=== PATIENT | female | born 1960 | race Caucasian/White ===

== ENCOUNTER → 2016-04-13 | Outpatient (CLI) | payer OTHER ==
[~2016-04-13] MED LIST: AMLO5TAB2 PO; AMLO5TAB22 PO; AMOX875 PO; AMOX875T PO; ATEN-102 PO; ATEN100T PO; COZA100T PO; FURO20 PO; HYCOS PO; LOSA25TA31 PO; METF500 PO; METF500T PO; RANI150 PO; ULTR50TA PO; ULTR50TA5 PO; URSO300 PO; URSO300C2 PO; VITA100018 PO; VITA100064 PO; ZANT150T2 PO
[2016-04-13 12:19] LABS: AUTOMATED NEUTROPHIL # 4.7 TH/MM3 (1.8-7.7); BASOPHIL % 0.5 % (0.0-2.0); EOSINOPHIL # 0.2 TH/MM3 (0-0.4); EOSINOPHIL % 2.2 % (0.0-4.0); HEMATOCRIT 39.1 % (35.0-46.0); HEMO FLAGS DIFF FINAL; LYMPH % 35.4 % (9.0-44.0); MEAN CELL VOLUME 91.3 FL (80.0-100.0); MONO % 7.6 % (0.0-8.0); NEUT % 54.3 % (16.0-70.0); PLATELET COUNT 127 TH/MM3 (150-450); RED BLOOD COUNT 4.28 MIL/MM3 (4.00-5.30); RED CELL DISTRIBUTION WIDTH 17.2 % (11.6-17.2); WHITE BLOOD COUNT 8.6 TH/MM3 (4.0-11.0)
[2016-04-13 12:31] LABS: ALKALINE PHOSPHATASE 127 U/L (45-117); ALT (GPT) 47 U/L (10-53); ANION GAP 9 MEQ/L (5-15); AST (GOT) 48 U/L (15-37); BICARBONATE 27.3 MEQ/L (21.0-32.0); BLOOD UREA NITROGEN 22 MG/DL (7-18); CHLORIDE 101 MEQ/L (98-107); GLOMERULAR FILTRATION RATE 47 ML/MIN (>89); GLUCOSE,FASTING 108 MG/DL (74-99); LDL CHOLESTEROL 140 MG/DL (0-99); SODIUM (NA) 137 MEQ/L (136-145); TOTAL BILIRUBIN ADULT 0.9 MG/DL (0.2-1.0)
[2016-04-13 17:33] LABS: HEMOGLOBIN A1a 0.9 %; HEMOGLOBIN A1b 1.9 %; HEMOGLOBIN Ao 83.8 %; HEMOGLOBIN P3 3.9 %
== END ==
LOC: PLAB 09:00
PROVIDERS: ATTEND Internal Medicine Gastroenterology
DX: L29.9 Pruritus, unspecified (principal); R19.5 Other fecal abnormalities; K74.3 Primary biliary cirrhosis
CPT/HCPCS: 80053; 80061; 83036; 84443; 85025

== ENCOUNTER 2016-04-20 21:33 | Emergency (ER) | payer OTHER ==
[~2016-04-20] VITALS: Ht 157.5 cm; Wt 121.6 kg
[~2016-04-20 21:33] MED LIST changes: -AMLO5TAB2 PO; -AMOX875T PO; -ATEN100T PO; -COZA100T PO; -HYCOS PO; -METF500T PO; -ULTR50TA5 PO; -URSO300C2 PO; -VITA100064 PO; -ZANT150T2 PO
[2016-04-20 21:57] VITALS: BP 139/76; PULSE 54; RESP 20; TEMP 98.7; O2SAT 98
[2016-04-20] MEDS ORDERED: ATEN100T PO (23:19)
[2016-04-20] MEDS ORDERED: VITA100064 PO (23:19)
[2016-04-20] MEDS ORDERED: URSO300C2 PO (23:19)
[2016-04-20] MEDS ORDERED: AMLO5TAB2 PO (23:19)
[2016-04-20] MEDS ORDERED: METF500T PO (23:19)
[2016-04-20] MEDS ORDERED: ULTR50TA5 PO (23:19)
[2016-04-20] MEDS ORDERED: COZA100T PO (23:19)
[2016-04-20] MEDS ORDERED: ZANT150T2 PO (23:19)
[2016-04-21] MEDS ORDERED: HYCOS PO (00:12)
[2016-04-21] MEDS ORDERED: AMOX875T PO (00:12)
--- NOTE | 2016-04-21 00:12 | PD ---
HPI Chief Complaint: Cold / Flu Symptoms Time Seen by Provider: 23:52 Travel History International Travel<30 days: No Contact w/Intl Traveler<30days: No Traveled to known affect area: No History of Present Illness HPI 55-year-old female complains of right otalgia, sore throat worse with swallowing and an occasional dry cough with some pain in the region of the right upper chest and right upper back. Symptoms started gradually a few days ago. Intermittent subjective fevers reported. She reports a history of acute otitis media of the right ear several months ago which responded well to amoxicillin. The patient smokes. She's had no exertional chest pain. PFSH Past Medical History Hx Anticoagulant Therapy: Yes Cancer: No Cardiovascular Problems: Yes (HTN CHOL) Diabetes: Yes Patient Takes Glucophage: Yes Endocrine: No Genitourinary: No Hepatitis: Yes (Biliary cirrhosis) Hiatal Hernia: No Hypertension: Yes Immune Disorder: No Musculoskeletal: Yes (Arthritis ) Neurologic: No Psychiatric: No Reproductive: No Respiratory: No Thyroid Disease: No Tetanus Vaccination: < 5 Years Influenza Vaccination: Yes ?: Not LMP: NONE Menopausal: Yes Past Surgical History Abdominal Surgery: Yes (Liver bx's) AICD: No Section: Yes (X's 2) Cholecystectomy: Yes Gynecologic Surgery: Yes (C-SECT. X2) Joint Replacement: No Pacemaker: No Other Surgery: Yes Social History Alcohol Use: No Tobacco Use: Yes (1/2-1 PPD) Substance Use: No Allergies-Medications (Allergen,Severity, Reaction): Coded Allergies: Flexeril (Verified Allergy, Severe, Restlessness, 04/20/16) RESTLESS LEG Lisinopril (Verified Allergy, Severe, Rash, 04/20/16) Reported Meds & Prescriptions Reported Meds & Active Scripts Active Amoxicillin 875 Mg Tab 875 Mg PO BID 10 Days Hydromet Liq (Hydrocodone Bit/Homatropine Methylb) 5-1.5 Mg/5 Ml Syrp 5 Ml PO HS PRN 14 Days Reported Ursodiol 300 Mg Cap 600 Mg PO BID Ultram (Tramadol HCl) 50 Mg Tab 50 Mg PO Q12HR NEB PRN Zantac (Ranitidine HCl) 150 Mg Tab 150 Mg PO BID Metformin (Metformin HCl) 500 Mg Tab 500 Mg PO BIDPC With meals Cozaar (Losartan Potassium) 100 Mg Tab 100 Mg PO DAILY Vitamin D (Cholecalciferol) 1,000 Unit Tab 2,000 Units PO DAILY Atenolol 100 Mg Tab 100 Mg PO DAILY Amlodipine (Amlodipine Besylate) 5 Mg Tab 5 Mg PO BID Review of Systems Except as stated in HPI: all other systems reviewed are Neg Physical Exam Narrative GENERAL: 55-year-old female pleasant no acute distress SKIN: Warm and dry. HEAD: Atraumatic. Normocephalic. EYES: Pupils equal and round. No scleral icterus. No injection or drainage. ENT: No nasal bleeding or discharge. Mucous membranes pink and moist. Right tympanic membrane is erythematous with minimal bulging of the pars tympana and minimal white fluid in the region of the middle ear. External canal appears normal. Left ear exam is normal. No mastoid tenderness on either side. Posterior oropharynx appears normal. No anterior neck adenopathy. NECK: Trachea midline. No JVD. CARDIOVASCULAR: Regular rate and rhythm. No murmur appreciated. RESPIRATORY: No accessory muscle use. Clear to auscultation. Breath sounds equal bilaterally. GASTROINTESTINAL: Abdomen soft, non-tender, nondistended. Hepatic and splenic margins not palpable. MUSCULOSKELETAL: No obvious deformities. No clubbing. No cyanosis. No edema. NEUROLOGICAL: Awake and alert. No obvious cranial nerve deficits. Motor grossly within normal limits. Normal speech. PSYCHIATRIC: Appropriate mood and affect; insight and judgment normal. Data Data Last Documented VS Vital Signs Date Time Temp Pulse Resp B/P Pulse Ox O2 Delivery O2 Flow Rate FiO2 04/21/16 00:39 62 18 132/78 99 04/20/16 23:21 Room Air 04/20/16 21:57 98.7 Orders Amoxicillin (Trimox) (04/21/16 00:15) Albuterol Hfa Inh (Proair Hfa Inh) (04/21/16 00:15) Lidocaine 2% Viscous (Xylocaine 2% Visco (04/21/16 00:15) [facility] Medical Decision Making Medical Screen Exam Complete: Yes Emergency Medical Condition: Yes Medical Record Reviewed: Yes Differential Diagnosis Acute otitis media, pharyngitis, pneumonia, viral syndrome Narrative Course Patient appears to have acute otitis media. We'll provide a course of amoxicillin which has worked well in the past. Mild component of bronchitis / viral URI likely has accompanied the patient's acute otitis media. Inhaler also provided. Hydromet prescribed to the patient. She states this has been very effective in the past for managing cough especially at night. Steroids deferred per patient's preference and because she is a diabetic swell. Return precautions discussed. She is ready for discharge home. Follow up with Dr. Squires. Diagnosis Primary Impression: AOM (acute otitis media) Qualified Code: H65.191 - Other acute nonsuppurative otitis media of right ear , recurrence not specified Additional Impressions: Cough in adult Pharyngitis Qualified Code: J02.9 - Pharyngitis, unspecified etiology Referrals: Obie Squires MD 2 days Additional Instructions: You have a choice when it comes to health care, and we are glad that you chose [facility]. Hopefully, we have met your expectations on today's visit. You are welcome to return to [facility] at any time, as we are committed to meeting the health care needs of our community. Med/Other Pt SpecificInfo: Prescription(s) given Scripts Amoxicillin 875 Mg [id number] Mg PO BID 10 Days Ref 0 Prov:Dago Zimmerman MD 04/21/16 Hydrocodone-Homatropine Liq (Hydromet Liq)5-1.5 Mg/5 Ml Syrp5 Ml PO HS PRN ( COUGH) 14 Days Ref 0 Prov:Dago Zimmerman MD 04/21/16 Disposition: 01 DISCHARGE HOME Condition: Stable Dago Zimmerman MD Apr 21, 2016 00:12
[2016-04-21] MEDS ORDERED: AMOXICILLIN 875 MG TAB PO ONE (00:15)
[2016-04-21] MEDS ORDERED: ALBUTEROL SULFATE 90 MCG/ACT HFA 8 GM INHALER INH ONE (00:15)
[2016-04-21] MEDS ORDERED: LIDOCAINE VISCOUS 2% SOLN 15 ML UDC PO ONE (00:15)
[2016-04-21 00:39] VITALS: BP 132/78
== END 2016-04-21 00:40 | disposition home or self-care (01) ==
LOC: PHED 21:33
DX: H66.91 Otitis media, unspecified, right ear (principal); J02.9 Acute pharyngitis, unspecified; E11.9 Type 2 diabetes mellitus without complications; F17.210 Nicotine dependence, cigarettes, uncomplicated; K74.5 Biliary cirrhosis, unspecified; I10 Essential (primary) hypertension; Z79.01 Long term (current) use of anticoagulants; Z79.4 Long term (current) use of insulin
CPT/HCPCS: 99283

== ENCOUNTER → 2016-06-21 | Outpatient (CLI) | payer OTHER ==
[~2016-06-21] MED LIST changes: +AMLO5TAB2 PO; -AMLO5TAB22 PO; -AMOX875 PO; +AMOX875T PO; -ATEN-102 PO; +ATEN100T PO; +COZA100T PO; -FURO20 PO; +HYCOS PO; -LOSA25TA31 PO; -METF500 PO; +METF500T PO; -RANI150 PO; -ULTR50TA PO; +ULTR50TA5 PO; -URSO300 PO; +URSO300C2 PO; -VITA100018 PO; +VITA100064 PO; +ZANT150T2 PO
[2016-06-21 13:10] LABS: BICARBONATE 27.3 MEQ/L (21.0-32.0); POTASSIUM 3.8 MEQ/L (3.5-5.1)
== END ==
LOC: PLAB 10:04
PROVIDERS: ATTEND Internal Medicine Gastroenterology
DX: E11.9 Type 2 diabetes mellitus without complications (principal); K76.0 Fatty (change of) liver, not elsewhere classified
CPT/HCPCS: 36415; 80048

== ENCOUNTER 2016-06-27 11:56 | Emergency (ER) | payer OTHER ==
[~2016-06-27] VITALS: Ht 157.5 cm; Wt 119.0 kg
[2016-06-27 12:02] VITALS: BP_SYST 157; BP_DIAS 2; BP_DIAS 82; PULSE 57; RESP 20; TEMP 97.9; O2SAT 94
[2016-06-27] MEDS ORDERED: SODIUM CHLOR 0.9% 1000 ML INJ 1,000 ML IV ONE (12:26)
[2016-06-27] MEDS ORDERED: diphenhydrAMINE HCL 50 MG/ML VIAL IVP ONE (12:30)
[2016-06-27] MEDS ORDERED: SODIUM CHLORIDE 0.9% FLUSH 10 ML FLUSH IVF PRN (12:30)
[2016-06-27] MEDS ORDERED: PROCHLORPERAZINE INJ 10 MG/2 ML VIAL IVP ONE (12:30)
[2016-06-27 12:56] LABS: BLOOD, URINE SMALL (NEG); GLUCOSE,URINE NEG (NEG); KETONE, URINE NEG (NEG); NITRITE,URINE NEG (NEG); PH, URINE 5.5 (5.0-8.5)
--- NOTE | 2016-06-27 12:58 | RADHPO ---
EXAM DATE/TIME: 06/27/2016 12:30 [facility] COMPARISON: No previous studies available for comparison. INDICATIONS : Cephalgia. RADIATION DOSE: 66.50 CTDIvol (mGy) MEDICAL HISTORY : Hypertension. Chronic obstructive pulmonary disease. Diabetes mellitus type 2. SURGICAL HISTORY : None. ENCOUNTER: Initial ACUITY: 1 day PAIN SCALE: 5/10 LOCATION: cranial TECHNIQUE: Multiple contiguous axial images were obtained of the head. Using automated exposure control and adj ustment of the mA and/or kV according to patient size, radiation dose was kept as low as reasonably a chievable to obtain optimal diagnostic quality images. FINDINGS: CEREBRUM: The ventricles are normal for age. No evidence of midline shift, mass lesion, hemorrhage or acute in farction. No extra-axial fluid collections are seen. POSTERIOR FOSSA: The cerebellum and brainstem are intact. The 4th ventricle is midline. The cerebellopontine angle i s unremarkable. EXTRACRANIAL: The visualized portion of the orbits is intact. SKULL: The calvaria is intact. No evidence of skull fracture. CONCLUSION: No acute disease. Mary Carmen Martines MD on June 27, 2016 at 12:56 Board Certified Radiologist. This report was verified electronically.
[2016-06-27 13:01] LABS: METHOD OF COLLECTION CLEAN CATCH; URINE COLOR YELLOW (YELLW/STRAW)
[2016-06-27 13:02] LABS: COMMENT (UR) CULT NOT INDICATED; CULTURE IF INDICATED CULT NOT INDICATED; SQUAMOUS EPITHELIAL CELL URINE > 8 /hpf (0-5); WBC, URINE 0-2 /hpf (0-5)
--- NOTE | 2016-06-27 13:11 | PD ---
HPI Chief Complaint: Headache Time Seen by Provider: 12:18 Travel History International Travel<30 days: No Contact w/Intl Traveler<30days: No Traveled to known affect area: No History of Present Illness HPI 55 y/o female presents with cough, nasal congestion, intermittent headaches and body aches over the past couple of days. She states that the pain in her head and back are exacerbated with cough. She denies any pain or back currently. She states that she also is concerned because she hit her head with the commode a couple days before the headache started. She denies any thunderclap onset. She states the headache is intermittent in nature. She states that she took Motrin prior to arrival and that took care of everything other than the headache which feels like a pressure. She denies any specific sick contacts. She denies other modifying factors. Duration is couple of days. PFSH Past Medical History Hx Anticoagulant Therapy: Yes Asthma: Yes Cancer: No Cardiovascular Problems: Yes (HTN CHOL) COPD: Yes Diabetes: Yes Patient Takes Glucophage: No Diminished Hearing: No Endocrine: No Genitourinary: No Hepatitis: Yes (Biliary cirrhosis) Hiatal Hernia: No Hypertension: Yes Immune Disorder: No Musculoskeletal: Yes (Arthritis ) Neurologic: No Psychiatric: No Reproductive: No Respiratory: No Thyroid Disease: No Tetanus Vaccination: < 5 Years Influenza Vaccination: Yes ?: Not Menopausal: Yes Past Surgical History Abdominal Surgery: Yes (Liver bx's) AICD: No Section: Yes (X's 2) Cholecystectomy: Yes Gynecologic Surgery: Yes (C-SECT. X2) Joint Replacement: No Pacemaker: No Other Surgery: Yes Social History Alcohol Use: No Tobacco Use: Yes (1/2-1 PPD) Substance Use: No Allergies-Medications (Allergen,Severity, Reaction): Coded Allergies: Flexeril (Verified Allergy, Severe, Restlessness, 06/27/16) RESTLESS LEG Lisinopril (Verified Allergy, Severe, Rash, 06/27/16) Reported Meds & Prescriptions Reported Meds & Active Scripts Active Amoxicillin 875 Mg Tab 875 Mg PO BID 10 Days Hydromet Liq (Hydrocodone Bit/Homatropine Methylb) 5-1.5 Mg/5 Ml Syrp 5 Ml PO HS PRN 14 Days Reported Ursodiol 300 Mg Cap 600 Mg PO BID Ultram (Tramadol HCl) 50 Mg Tab 50 Mg PO Q12HR NEB PRN Zantac (Ranitidine HCl) 150 Mg Tab 150 Mg PO BID Metformin (Metformin HCl) 500 Mg Tab 500 Mg PO BIDPC With meals Cozaar (Losartan Potassium) 100 Mg Tab 100 Mg PO DAILY Vitamin D (Cholecalciferol) 1,000 Unit Tab 2,000 Units PO DAILY Atenolol 100 Mg Tab 100 Mg PO DAILY Amlodipine (Amlodipine Besylate) 5 Mg Tab 5 Mg PO BID Review of Systems Except as stated in HPI: all other systems reviewed are Neg Physical Exam Narrative General: 55 y/o patient in no apparent distress, well appearing Skin: Warm and dry Eyes: Pupils equal NECK: no pain with range of motion, no meningeal signs Cardiovascular: Regular rate and rhythm Respiratory: Normal respiratory effort noted, clear to auscultation bilaterally at apices Abdomen: soft, nontender, nondistended Back: No step-offs, midline spine nontender with palpation Extremities: No pain over main joints Neuro: awake, alert, sensation and motor grossly intact Data Data Last Documented VS Vital Signs Date Time Temp Pulse Resp B/P Pulse Ox O2 Delivery O2 Flow Rate FiO2 06/27/16 12:02 97.9 57 20 157/82 94 Orders Chest, Pa & Lat (06/27/16 ) Complete Blood Count With Diff (06/27/16 12:26) Basic Metabolic Panel (Bmp) (06/27/16 12:26) Ct Brain W/O Iv Contrast(Rout) (06/27/16 12:26) Ecg Monitoring (06/27/16 12:26) Iv Access Insert/Monitor (06/27/16 12:26) Oximetry (06/27/16 12:26) Blood Glucose (06/27/16 12:26) Sodium Chloride 0.9% Flush (Ns Flush) (06/27/16 12:30) Prochlorperazine Inj (Compazine Inj) (06/27/16 12:30) Diphenhydramine Inj (Benadryl Inj) (06/27/16 12:30) Sodium Chlor 0.9% 1000 Ml Inj (Ns 1000 M (06/27/16 12:26) Urinalysis - C+S If Indicated (06/27/16 12:26) Labs Laboratory Tests Test 06/27/16 06/27/16 12:45 13:00 Urine Collection Type CLEAN CATCH Urine Color YELLOW Urine Turbidity SLIGHT Urine pH 5.5 Urine Specific [place] 1.024 Urine Protein TRACE mg/dL Urine Glucose (UA) NEG mg/dL Urine Ketones NEG mg/dL Urine Occult Blood SMALL Urine Nitrite NEG Urine Bilirubin SMALL Urine Leukocyte Esterase NEG Urine RBC 4-9 /hpf Urine WBC 0-2 /hpf Urine Squamous Epithelial > 8 /hpf Cells Urine Amorphous Sediment MOD Microscopic Urinalysis Comment CULT NOT INDICATED Urine Collection Time 12:45 White Blood Count 6.3 TH/MM3 Red Blood Count 4.40 MIL/MM3 Hemoglobin 13.6 GM/DL Hematocrit 40.0 % Mean Corpuscular Volume 91.1 FL Mean Corpuscular Hemoglobin 30.9 PG Mean Corpuscular Hemoglobin 33.9 % Concent Red Cell Distribution Width 15.7 % Platelet Count 108 TH/MM3 Mean Platelet Volume 10.8 FL Neutrophils (%) (Auto) 51.9 % Lymphocytes (%) (Auto) 37.2 % Monocytes (%) (Auto) 7.2 % Eosinophils (%) (Auto) 2.0 % Basophils (%) (Auto) 1.7 % Neutrophils # (Auto) 3.2 TH/MM3 Lymphocytes # (Auto) 2.4 TH/MM3 Monocytes # (Auto) 0.5 TH/MM3 Eosinophils # (Auto) 0.1 TH/MM3 Basophils # (Auto) 0.1 TH/MM3 CBC Comment DIFF FINAL Differential Comment Sodium Level 139 MEQ/L Potassium Level 3.9 MEQ/L Chloride Level 103 MEQ/L Carbon Dioxide Level 27.1 MEQ/L Anion Gap 9 MEQ/L Blood Urea Nitrogen 14 MG/DL Creatinine 0.93 MG/DL Estimat Glomerular Filtration 63 ML/MIN Rate Random Glucose 114 MG/DL Calcium Level 9.1 MG/DL [facility] Medical Decision Making Medical Screen Exam Complete: Yes Emergency Medical Condition: Yes Medical Record Reviewed: Yes (past history confirmed) Interpretation(s) CBC & BMP Diagram 06/27/16 13:00 Last [address] 06/27/16 1226 Signed Impressions: Service Date/Time: Monday, June 27, 2016 12:30 - CONCLUSION: No acute disease. Mary Carmen Martines MD Chest X-Ray 06/27/16 0000 Signed Impressions: Service Date/Time: Monday, June 27, 2016 13:03 - CONCLUSION: No acute disease. Mary Carmen Martines MD Differential Diagnosis Sinusitis, tension, migraine, UTI, URI, dehydration, electrolyte abnormality Narrative Course Will check labs, urinalysis, CT brain, chest x-ray and dose with Benadryl, Compazine, IV fluid hydration and reevaluate ed workup no acute, Patient denies any new complaints and states that they are feeling better. Patient happy with care, all questions answered. Patient knows that follow up is incumbent on them and to return to the emergency room immediately if new or worsening symptoms develop. Patient given strict return precautions, vitals reviewed and are normal, agrees to further workup as an outpatient. Diagnosis Primary Impression: Cephalgia Qualified Code: R51 - Nonintractable headache, unspecified chronicity pattern , unspecified headache type Additional Impression: Cough Patient Instructions: General Instructions Additional Instructions: tylenol as needed, follow with primary this week, return as needed Med/Other Pt SpecificInfo: No Change to Meds Disposition: 01 DISCHARGE HOME Condition: Stable Celi Branch MD Jun 27, 2016 13:11
--- NOTE | 2016-06-27 13:18 | RADHPO ---
EXAM DATE/TIME: 06/27/2016 13:03 [facility] COMPARISON: No previous studies available for comparison. INDICATIONS : Cough, chills MEDICAL HISTORY : Chronic obstructive pulmonary disease. Diabetes mellitus type II. Hypertension. Liver disease SURGICAL HISTORY : None. ENCOUNTER: Initial ACUITY: 3 days PAIN SCORE: 0/10 LOCATION: Bilateral chest FINDINGS: PA and lateral views of the chest demonstrate the lungs to be hypoinflated without evidence of mass, infiltrate or effusion. The cardiomediastinal contours are unremarkable. Osseous structures are int act. CONCLUSION: No acute disease. Mary Carmen Martines MD on June 27, 2016 at 13:16 Board Certified Radiologist. This report was verified electronically.
[2016-06-27 13:19] LABS: AUTOMATED NEUTROPHIL # 3.2 TH/MM3 (1.8-7.7); BASOPHIL # 0.1 TH/MM3 (0-0.2); BASOPHIL % 1.7 % (0.0-2.0); EOSINOPHIL # 0.1 TH/MM3 (0-0.4); HEMO FLAGS DIFF FINAL; LYMPH % 37.2 % (9.0-44.0); LYMPHOCYTE # 2.4 TH/MM3 (1.0-4.8); MEAN CELL VOLUME 91.1 FL (80.0-100.0); MEAN CORPUSCULAR HEMOGLOBIN 30.9 PG (27.0-34.0); MEAN CORPUSCULAR HGB CONC 33.9 % (32.0-36.0); MONO % 7.2 % (0.0-8.0); NEUT % 51.9 % (16.0-70.0); PLATELET COUNT 108 TH/MM3 (150-450); RED CELL DISTRIBUTION WIDTH 15.7 % (11.6-17.2); WHITE BLOOD COUNT 6.3 TH/MM3 (4.0-11.0)
[2016-06-27 13:28] LABS: POTASSIUM 3.9 MEQ/L (3.5-5.1)
[2016-06-27 13:31] LABS: BICARBONATE 27.1 MEQ/L (21.0-32.0)
== END 2016-06-27 14:28 | disposition home or self-care (01) ==
LOC: PHED 11:56
DX: R51 Headache (principal); R05 Cough; I10 Essential (primary) hypertension; E11.9 Type 2 diabetes mellitus without complications; J44.9 Chronic obstructive pulmonary disease, unspecified; K74.5 Biliary cirrhosis, unspecified; J45.909 Unspecified asthma, uncomplicated; Z79.01 Long term (current) use of anticoagulants; F17.210 Nicotine dependence, cigarettes, uncomplicated
CPT/HCPCS: 70450; 71020; 80048; 81001; 85025; 96374; 96375; 99284; J0780; J1200; J7030

== ENCOUNTER → 2016-07-19 | Outpatient (CLI) | payer OTHER ==
[2016-07-19 11:00] LABS: AUTOMATED NEUTROPHIL # 3.2 TH/MM3 (1.8-7.7); BASOPHIL % 0.6 % (0.0-2.0); EOSINOPHIL # 0.2 TH/MM3 (0-0.4); EOSINOPHIL % 2.8 % (0.0-4.0); HEMATOCRIT 38.6 % (35.0-46.0); HEMO FLAGS DIFF FINAL; LYMPH % 41.3 % (9.0-44.0); LYMPHOCYTE # 2.7 TH/MM3 (1.0-4.8); MEAN CELL VOLUME 91.4 FL (80.0-100.0); MEAN CORPUSCULAR HEMOGLOBIN 30.7 PG (27.0-34.0); MEAN CORPUSCULAR HGB CONC 33.6 % (32.0-36.0); MONO % 7.1 % (0.0-8.0); NEUT % 48.2 % (16.0-70.0); PLATELET COUNT 103 TH/MM3 (150-450); RED BLOOD COUNT 4.22 MIL/MM3 (4.00-5.30); RED CELL DISTRIBUTION WIDTH 15.9 % (11.6-17.2); WHITE BLOOD COUNT 6.6 TH/MM3 (4.0-11.0)
[2016-07-19 13:47] LABS: BLOOD, URINE NEG (NEG); GLUCOSE,URINE NEG (NEG); KETONE, URINE NEG (NEG); NITRITE,URINE NEG (NEG); PH, URINE 6.5 (5.0-8.5); SQUAMOUS EPITHELIAL CELL URINE 2 /hpf (0-5); URINE COLOR YELLOW (YELLW/STRAW)
[2016-07-19 14:04] LABS: BICARBONATE 31.8 MEQ/L (21.0-32.0); POTASSIUM 4.1 MEQ/L (3.5-5.1); TOTAL PROTEIN SPE 7.9 GM/DL (6.0-7.6)
[2016-07-20 15:40] LABS: ALBUMIN SPE 4.01 GM/DL (3.50-5.00); ALPHA 1 GLOBULIN 0.25 GM/DL (0.11-0.29); ALPHA 2 GLOBULIN 0.82 GM/DL (0.22-1.00); BETA GLOBULINS (SPE) 0.84 GM/DL (0.53-1.03)
[2016-07-21 11:50] LABS: MYELOPEROXIDASE LESS THAN 1.0 AI (<1.0); PROTEINASE-3 LESS THAN 1.0 AI (<1.0)
[2016-07-21 12:22] LABS: ANA SCREEN POS (NEG)
[2016-07-23 10:51] LABS: ANA TITER QUANT 1:40 (NEG)
== END ==
LOC: PLAB 09:56
PROVIDERS: ATTEND Internal Medicine Nephrology
DX: N18.3 Chronic kidney disease, stage 3 (moderate) (principal)
CPT/HCPCS: 80069; 81001; 84165; 85025; 86021; 86038; 86039

== ENCOUNTER → 2016-08-31 | Outpatient (CLI) | payer OTHER ==
[2016-08-31 14:36] LABS: ALT (GPT) 48 U/L (10-53); ANION GAP 7 MEQ/L (5-15); AST (GOT) 60 U/L (15-37); BICARBONATE 30.3 MEQ/L (21.0-32.0); BLOOD UREA NITROGEN 23 MG/DL (7-18); CHLORIDE 103 MEQ/L (98-107); GLOMERULAR FILTRATION RATE 61 ML/MIN (>89); POTASSIUM 4.8 MEQ/L (3.5-5.1); SODIUM (NA) 140 MEQ/L (136-145)
[2016-08-31 14:39] LABS: ALKALINE PHOSPHATASE 125 U/L (45-117)
== END ==
LOC: PLAB 11:01
PROVIDERS: ATTEND Internal Medicine Gastroenterology
DX: K74.3 Primary biliary cirrhosis (principal)
CPT/HCPCS: 80053

== ENCOUNTER → 2016-12-23 | Outpatient (CLI) | payer OTHER ==
[~2016-12-23] MED LIST changes: +FURO1TAB62 PO; +QUES4POW2 PO; +SPIR25TA PO
[2016-12-23 13:01] LABS: AUTOMATED NEUTROPHIL # 3.2 TH/MM3 (1.8-7.7); BASOPHIL % 0.6 % (0.0-2.0); EOSINOPHIL # 0.2 TH/MM3 (0-0.4); EOSINOPHIL % 2.9 % (0.0-4.0); HEMATOCRIT 38.4 % (35.0-46.0); LYMPH % 41.7 % (9.0-44.0); LYMPHOCYTE # 2.8 TH/MM3 (1.0-4.8); MEAN CELL VOLUME 92.4 FL (80.0-100.0); MEAN CORPUSCULAR HEMOGLOBIN 31.3 PG (27.0-34.0); MEAN CORPUSCULAR HGB CONC 33.9 % (32.0-36.0); MONO % 6.5 % (0.0-8.0); NEUT % 48.3 % (16.0-70.0); PLATELET COUNT 112 TH/MM3 (150-450); RED BLOOD COUNT 4.15 MIL/MM3 (4.00-5.30); WHITE BLOOD COUNT 6.7 TH/MM3 (4.0-11.0)
[2016-12-23 13:24] LABS: ANION GAP 7 MEQ/L (5-15); AST (GOT) 56 U/L (15-37); BICARBONATE 28.2 MEQ/L (21.0-32.0); BLOOD UREA NITROGEN 16 MG/DL (7-18); CHLORIDE 103 MEQ/L (98-107); GLOMERULAR FILTRATION RATE 69 ML/MIN (>89); GLUCOSE,FASTING 121 MG/DL (74-99); POTASSIUM 3.5 MEQ/L (3.5-5.1); SODIUM (NA) 138 MEQ/L (136-145)
[2016-12-23 13:26] LABS: MICRO ALBUMIN RANDOM URINE RAW 16.9 MG/L (0.0-30.0)
[2016-12-23 13:27] LABS: HEMO FLAGS AUTO DIFF; PLATELET ESTIMATE SMEAR LOW (NORMAL); PLATELET MORPHOLOGY ENLARGED (NORMAL); SCAN/DIFF AUTO DIFF CONFIRMED
[2016-12-23 13:30] LABS: ALKALINE PHOSPHATASE 146 U/L (45-117); ALT (GPT) 51 U/L (10-53); TOTAL BILIRUBIN ADULT 0.8 MG/DL (0.2-1.0)
[2016-12-23 17:51] LABS: HEMOGLOBIN A1a 0.9 %; HEMOGLOBIN A1b 1.9 %; HEMOGLOBIN Ao 83.5 %; HEMOGLOBIN LA1C 2.2 %; HEMOGLOBIN P3 4.1 %
== END ==
LOC: PLAB 10:58
PROVIDERS: ATTEND Internal Medicine Gastroenterology
DX: K76.0 Fatty (change of) liver, not elsewhere classified (principal); K74.3 Primary biliary cirrhosis; E11.9 Type 2 diabetes mellitus without complications; E55.9 Vitamin D deficiency, unspecified; D69.6 Thrombocytopenia, unspecified
CPT/HCPCS: 80053; 82043; 82306; 83036; 85025

== ENCOUNTER 2016-12-25 22:08 | Inpatient (IN) | payer OTHER ==
[~2016-12-25] VITALS: Ht 157.5 cm; Wt 118.2 kg
[~2016-12-25 22:08] MED LIST changes: -FURO1TAB62 PO; -QUES4POW2 PO; -SPIR25TA PO
[2016-12-25 22:14] VITALS: BP 169/87; PULSE 78; RESP 16; TEMP 98.5; O2SAT 97
[2016-12-25] MEDS ORDERED: FURO1TAB62 PO (22:49)
[2016-12-25] MEDS ORDERED: SPIR25TA PO (22:49)
[2016-12-25] MEDS ORDERED: QUES4POW2 PO (22:49)
--- NOTE | 2016-12-25 23:42 | PD ---
HPI Chief Complaint: GI Complaint Time Seen by Provider: 00:28 Travel History International Travel<30 days: No Contact w/Intl Traveler<30days: No Traveled to known affect area: No History of Present Illness HPI 56-year-old female presents to the emergency department by private transportation for complaint of nausea and epigastric discomfort since Tuesday evening. Patient states she ate fried food on Tuesday evening. Patient thought she may have had some food poisoning but did not have any vomiting. Patient does admit to nausea. Patient denies any chest pain or shortness of breath. Patient is status post cholecystectomy has diagnosis of primary biliary cirrhosis and notes that she does feel some discomfort in the subxiphoid region and reports he right upper quadrant she felt fullness but this is resolved. Patient rates discomfort for over 10 in intensity. Discomfort is nonradiating to the neck jaw back shoulder or arms. Patient does have history of hypertension dyslipidemia and diabetes as well as tobacco use. Patient denies any history of heart disease or cardiac evaluation. Patient has noted some mild loose stool. Patient is unable to identify exacerbating or alleviating factors. PFSH Past Medical History Narrative Medical Primary biliary cirrhosis, COPD, diabetes, hypertension, dyslipidemia; cholecystectomy liver biopsy ; tobacco use; nursing notes reviewed Hx Anticoagulant Therapy: Yes Asthma: Yes Cancer: No Cardiovascular Problems: Yes (HTN CHOL) High Cholesterol: Yes COPD: Yes Diabetes: Yes Patient Takes Glucophage: Yes (12/25/16) Diminished Hearing: No Endocrine: No Genitourinary: No Hepatitis: Yes (BILIARY CIRRHOSIS) Hiatal Hernia: No Hypertension: Yes Immune Disorder: No Musculoskeletal: Yes Neurologic: No Psychiatric: No Reproductive: No Respiratory: No Thyroid Disease: No ?: Not LMP: 2011 Menopausal: Yes Past Surgical History Abdominal Surgery: Yes (LIVER BX X2) AICD: No Section: Yes (X's 2) Cholecystectomy: Yes Gynecologic Surgery: Yes (C-SECT. X2) Joint Replacement: No Pacemaker: No Other Surgery: Yes Social History Alcohol Use: No Tobacco Use: Yes Substance Use: No Allergies-Medications (Allergen,Severity, Reaction): Coded Allergies: cyclobenzaprine (Unverified Allergy, Severe, Restlessness, 12/25/16) RESTLESS LEG lisinopril (Unverified Allergy, Severe, Rash, 12/25/16) Reported Meds & Prescriptions Reported Meds & Active Scripts Active Reported Questran (Cholestyramine) 4 Gm/Dose Powd 4 Gm PO BID 1 level scoopful of powder contains 4 grams of cholestyramine. Lasix (Furosemide) 20 Mg Tab 20 Mg PO DAILY Spironolactone 25 Mg Tab 25 Mg PO BIDPC Ursodiol 300 Mg Cap 600 Mg PO BID Ultram (Tramadol HCl) 50 Mg Tab 50 Mg PO Q12HR NEB PRN Zantac (Ranitidine HCl) 150 Mg Tab 150 Mg PO BID Metformin (Metformin HCl) 500 Mg Tab 500 Mg PO BIDPC With meals Cozaar (Losartan Potassium) 100 Mg Tab 100 Mg PO DAILY Vitamin D3 (Cholecalciferol) 1,000 Unit Tab 2,000 Units PO DAILY Atenolol 100 Mg Tab 100 Mg PO DAILY Amlodipine (Amlodipine Besylate) 5 Mg Tab 5 Mg PO BID Review of Systems Except as stated in HPI: all other systems reviewed are Neg General / Constitutional: No: Fever, Chills HENT: No: Congestion Cardiovascular: No: Chest Pain or Discomfort, Diaphoresis, Dyspnea on exertion Respiratory: No: Cough, Shortness of Breath, Wheezing Gastrointestinal: Positive: Nausea, Diarrhea, Abdominal Pain, No: Vomiting Genitourinary: No: Flank Pain Musculoskeletal: No: Limited ROM, Pain Skin: No Rash Neurologic: No: Weakness Psychiatric: No: Anxiety Hematologic/Lymphatic: No: Easy Bruising Physical Exam Narrative GENERAL: Well-developed well-nourished female in no acute distress no respiratory distress SKIN: Warm and dry. HEAD: Normocephalic. EYES: No scleral icterus. No injection or drainage. NECK: Supple, trachea midline. No JVD or lymphadenopathy. CARDIOVASCULAR: Regular rate and rhythm without murmurs, gallops, or rubs. RESPIRATORY: Breath sounds equal bilaterally. No accessory muscle use. GASTROINTESTINAL: Abdomen soft, mild reproducible epigastric tenderness to palpation without guarding or rebound, nondistended. MUSCULOSKELETAL: No cyanosis, or edema. BACK: Nontender without obvious deformity. No CVA tenderness. Data Data Last Documented VS Vital Signs Date Time Temp Pulse Resp B/P (MAP) Pulse Ox O2 Delivery O2 Flow Rate FiO2 12/26/16 00:53 20 12/26/16 00:49 81 149/81 (103) 98 12/25/16 22:14 98.5 Orders Orders Complete Blood Count With Diff (12/25/16 23:30) Comprehensive Metabolic Panel (12/25/16 23:30) Lipase (12/25/16 23:30) Lactic Acid (12/25/16 23:30) Urinalysis - C+S If Indicated (12/25/16 23:30) Iv Access Insert/Monitor (12/25/16 23:30) Ecg Monitoring (12/25/16 23:30) Oximetry (12/25/16 23:30) Sodium Chloride 0.9% Flush (Ns Flush) (12/25/16 23:30) Electrocardiogram (12/25/16 23:30) Troponin I (12/25/16 23:34) Pantoprazole Inj (Protonix Inj) (12/25/16 23:45) Ondansetron Inj (Zofran Inj) (12/25/16 23:45) Morphine Inj (Morphine Inj) (12/25/16 23:45) Aspirin Chew (Aspirin Chew) (12/26/16 09:00) Sodium Chlor 0.9% 1000 Ml Inj (Ns 1000 M (12/26/16 00:30) Nitroglycerin Sl (Nitrostat Sl) (12/26/16 00:30) Ckmb (Isoenzyme) Profile (12/26/16 00:28) Chest, Single Ap (12/26/16 ) Aspirin Chew (Aspirin Chew) (12/26/16 01:00) Nitroglycerin 2% Oint (Nitroglycerin 2% (12/26/16 01:00) Nitroglycerin 2% Oint (Nitroglycerin 2% (12/26/16 01:00) Bedside Glucose MURPHY.CSUGAR (12/26/16 00:59) Blood Glucose Goal (Criteria) (12/26/16 00:59) Hypoglycemia 70 Mg/Dl Or < (12/26/16 00:59) Notify Dr: Other (12/26/16 00:59) Dextrose 50% In Ilene (Vial) Inj (D50w (Vi (12/26/16 01:00) Glucagon Inj (Glucagon Inj) (12/26/16 01:00) Insulin Aspart Supplemtl Scale (Novolog (12/26/16 08:00) Aspirin Ec (Ecotrin Ec) (12/26/16 09:00) Pravastatin (Pravachol) (12/26/16 09:00) Vital Signs (Adult) Q4H (12/26/16 00:59) Activity Oob Ad Adri (12/26/16 00:59) Box Worker / Telemetry .CONTINUOUS (12/26/16 00:59) Diet 1800 Ada Cons Carb (12/26/16 Breakfast) Sodium Chlor 0.9% 1000 Ml Inj (Ns 1000 M (12/26/16 00:59) Sodium Chloride 0.9% Flush (Ns Flush) (12/26/16 01:00) Sodium Chloride 0.9% Flush (Ns Flush) (12/26/16 09:00) Ondansetron Inj (Zofran Inj) (12/26/16 01:00) Comprehensive Metabolic Panel (12/27/16 06:00) Complete Blood Count With Diff (12/27/16 06:00) Troponin I (12/26/16 06:00) Troponin I (12/26/16 12:00) Scd Bilateral/Knee High MURPHY.BID (12/26/16 00:59) Justino Bilateral/Knee High MURPHY.QSHIFT (12/26/16 01:05) Acetamin-Hydrocod 325-5 Mg ([place] 5-325 (12/26/16 01:00) Morphine Inj (Morphine Inj) (12/26/16 01:00) Docusate Sodium-Senna (Heather-Colace) (12/26/16 09:00) Magnesium Hydroxide Liq (Milk Of Magnesi (12/26/16 01:00) Sennosides (Senokot) (12/26/16 01:00) Bisacodyl Supp (Dulcolax Supp) (12/26/16 01:00) Lactulose Liq (Lactulose Liq) (12/26/16 01:00) Amlodipine (Norvasc) (12/26/16 09:00) Atenolol (Tenormin) (12/26/16 09:00) Furosemide (Lasix) (12/26/16 09:00) Losartan (Cozaar) (12/26/16 09:00) Spironolactone (Aldactone) (12/26/16 09:00) Ursodiol (Actigall) (12/26/16 09:00) Famotidine (Pepcid) (12/26/16 09:00) Admit Order (Ed Use Only) (12/26/16 ) ^ Saline Lock (12/26/16 01:06) Resp Oxygen Patricio C Titrat 1-4 L (12/26/16 ) Notify Dr: Other (12/26/16 01:06) Sodium Chloride 0.9% Flush (Ns Flush) (12/26/16 09:00) Sodium Chloride 0.9% Flush (Ns Flush) (12/26/16 01:15) Consult Cardiology (12/26/16 01:06) Labs Laboratory Tests Test 12/25/16 23:35 White Blood Count 7.7 TH/MM3 Red Blood Count 4.13 MIL/MM3 Hemoglobin 12.4 GM/DL Hematocrit 37.6 % Mean Corpuscular Volume 91.2 FL Mean Corpuscular Hemoglobin 29.9 PG Mean Corpuscular Hemoglobin Concent 32.8 % Red Cell Distribution Width 16.1 % Platelet Count 91 TH/MM3 Mean Platelet Volume 9.1 FL Neutrophils (%) (Auto) 52.6 % Lymphocytes (%) (Auto) 38.0 % Monocytes (%) (Auto) 6.8 % Eosinophils (%) (Auto) 2.0 % Basophils (%) (Auto) 0.6 % Neutrophils # (Auto) 4.1 TH/MM3 Lymphocytes # (Auto) 2.9 TH/MM3 Monocytes # (Auto) 0.5 TH/MM3 Eosinophils # (Auto) 0.2 TH/MM3 Basophils # (Auto) 0.0 TH/MM3 CBC Comment AUTO DIFF Differential Comment AUTO DIFF CONFIRMED Platelet Estimate LOW Blood Urea Nitrogen 12 MG/DL Creatinine 0.85 MG/DL Random Glucose 111 MG/DL Total Protein 8.2 GM/DL Albumin 3.2 GM/DL Calcium Level 9.1 MG/DL Alkaline Phosphatase 122 U/L Aspartate Amino Transf (AST/SGOT) 39 U/L Alanine Aminotransferase (ALT/SGPT) 40 U/L Total Bilirubin 1.2 MG/DL Sodium Level 137 MEQ/L Potassium Level 3.6 MEQ/L Chloride Level 103 MEQ/L Carbon Dioxide Level 27.1 MEQ/L Anion Gap 7 MEQ/L Estimat Glomerular Filtration Rate 69 ML/MIN Lactic Acid Level 1.2 mmol/L Troponin I 0.11 NG/ML Lipase 167 U/L [facility] Medical Decision Making Medical Screen Exam Complete: Yes Emergency Medical Condition: Yes Medical Record Reviewed: Yes Interpretation(s) EKG: Normal sinus rhythm rate [address] elevation or injury pattern or ectopy noted troponin I elevated 0.01 CBC & BMP Diagram 12/25/16 23:35 Total Protein 8.2, Albumin 3.2 L, Calcium Level 9.1, Alkaline Phosphatase 122 H , Aspartate Amino Transf (AST/SGOT) 39 H, Alanine Aminotransferase (ALT/SGPT) 40 , Total Bilirubin 1.2 H Vital Signs Date Time Temp Pulse Resp B/P (MAP) Pulse Ox O2 Delivery O2 Flow Rate FiO2 12/26/16 00:53 20 12/26/16 00:49 81 20 149/81 (103) 98 12/25/16 22:14 98.5 78 16 169/ 97 Differential Diagnosis Abdominal pain, gastritis, peptic ulcer disease, pancreatitis, choledocholithiasis, esophageal spasm, ACS, ME, food borne illness Narrative Course Patient placed on obstetrics nurse pulse oximeter IV access obtained EKG performed which shows sinus rhythm no acute injury or ectopy specimen collected and sent for resulting patient ordered Zofran 4 mg IV Protonix 40 mg IV and morphine sulfate 2 mg IV Patient declined Morphine Troponin I: elevated 0.11 --administered SL NTG 0.4 mg x 1 4/10 pain nausea --> 0/10 no nausea; cardiac risk: Hypertension dyslipidemia diabetes tobacco use age 56 Patient aware of abnormal lab value troponin I elevation and need for admission some: Nitropaste 1 inch applied to chest wall aspirin administered; heparinization ordered call placed to patient's primary request patient be admitted to have [facility] MD admit the patient and case was discussed with [facility] MD will accept patient for admission and request cardiology to identify admission to [facility] or [place]; Per Dr Marks rec [facility] admit to [facility] Physician Communication Physician Communication iscussed with Dr Squires --admit to [facility] service; call placed to [facility] MD Dr Torres - - will accept for admission; discussed with Dr Marks --[facility] heparin Diagnosis Primary Impression: NSTEMI (non-ST elevated myocardial infarction) Admitting Information Admitting Physician Requests: Admit Amy Freeman MD Dec 25, 2016 23:42
[2016-12-25] MEDS ORDERED: ONDANSETRON HCL 4 MG/2 ML VIAL IV PUSH ONE (23:45)
[2016-12-25] MEDS ORDERED: PANTOPRAZOLE SODIUM 40 MG VIAL IV PUSH ONE (23:45)
[2016-12-25] MEDS ORDERED: MORPHINE SULFATE 4 MG/ML INJ IV PUSH ONE (23:45)
[2016-12-26] VITALS (29 sets, daily range): BP systolic 107–151; BP diastolic 59–81; PULSE 42–81; RESP 16–20; TEMP 97.3–98.4; O2SAT 92–99
[2016-12-26] MEDS: SODIUM CHLORIDE 0.9% FLUSH 10 ML FLUSH IV FLUSH PRN ×2 (00:03→00:47)
[2016-12-26 00:07] LABS: AUTOMATED NEUTROPHIL # 4.1 TH/MM3 (1.8-7.7); BASOPHIL % 0.6 % (0.0-2.0); EOSINOPHIL # 0.2 TH/MM3 (0-0.4); HEMATOCRIT 37.6 % (35.0-46.0); LYMPHOCYTE # 2.9 TH/MM3 (1.0-4.8); MEAN CELL VOLUME 91.2 FL (80.0-100.0); MEAN CORPUSCULAR HEMOGLOBIN 29.9 PG (27.0-34.0); MEAN CORPUSCULAR HGB CONC 32.8 % (32.0-36.0); MONO % 6.8 % (0.0-8.0); NEUT % 52.6 % (16.0-70.0); PLATELET COUNT 91 TH/MM3 (150-450); RED BLOOD COUNT 4.13 MIL/MM3 (4.00-5.30); RED CELL DISTRIBUTION WIDTH 16.1 % (11.6-17.2); WHITE BLOOD COUNT 7.7 TH/MM3 (4.0-11.0)
[2016-12-26 00:10] LABS: HEMO FLAGS AUTO DIFF
[2016-12-26 00:22] LABS: CHLORIDE 103 MEQ/L (98-107); POTASSIUM 3.6 MEQ/L (3.5-5.1); SODIUM (NA) 137 MEQ/L (136-145)
[2016-12-26 00:26] LABS: ANION GAP 7 MEQ/L (5-15); BICARBONATE 27.1 MEQ/L (21.0-32.0); BLOOD UREA NITROGEN 12 MG/DL (7-18)
[2016-12-26 00:28] LABS: ALT (GPT) 40 U/L (10-53)
[2016-12-26 00:29] LABS: AST (GOT) 39 U/L (15-37); GLOMERULAR FILTRATION RATE 69 ML/MIN (>89)
[2016-12-26 00:30] LABS: TOTAL BILIRUBIN ADULT 1.2 MG/DL (0.2-1.0)
[2016-12-26] MEDS ORDERED: NITROGLYCERIN 0.4 MG SL 25 TABS/BTL SL PRN (00:30)
[2016-12-26] MEDS ORDERED: SODIUM CHLOR 0.9% 1000 ML INJ 1,000 ML IV SCH (00:30)
[2016-12-26 00:31] LABS: ALKALINE PHOSPHATASE 122 U/L (45-117)
[2016-12-26] MEDS ORDERED: NITROGLYCERIN 2% OINT 1 GM PACKET TOPICAL PRN (01:00)
[2016-12-26] MEDS ORDERED: SODIUM CHLORIDE 0.9% FLUSH 10 ML FLUSH IV FLUSH PRN (01:00)
[2016-12-26] MEDS ORDERED: ONDANSETRON HCL 4 MG/2 ML VIAL IVP PRN (01:00)
[2016-12-26] MEDS ORDERED: ASPIRIN 81 MG CHEW TAB CHEW ONE (01:00)
[2016-12-26] MEDS ORDERED: ACETAMINOPHEN/HYDROcodone 325 MG/5 MG TAB PO PRN (01:00)
[2016-12-26] MEDS ORDERED: BISACODYL 10 MG SUPP RECTAL PRN (01:00)
[2016-12-26] MEDS ORDERED: GLUCAGON 1 MG/ML VIAL OTHER PRN (01:00)
[2016-12-26] MEDS ORDERED: MAGNESIUM HYDROXIDE SUSP 30 ML CUP PO PRN (01:00)
[2016-12-26] MEDS ORDERED: MORPHINE SULFATE 4 MG/ML INJ IV PUSH PRN (01:00)
[2016-12-26] MEDS ORDERED: DEXTROSE 50% IN WATER 50 ML VIAL(D50) IV PUSH PRN (01:00)
[2016-12-26] MEDS ORDERED: NITROGLYCERIN 2% OINT 1 GM PACKET TOPICAL ONE (01:00)
[2016-12-26] MEDS ORDERED: SENNOSIDES 8.6 MG TAB PO PRN (01:00)
[2016-12-26] MEDS ORDERED: LACTULOSE SYRUP 20 GM/30 ML CUP PO PRN (01:00)
--- NOTE | 2016-12-26 01:02 | RADRPT ---
EXAM DATE/TIME: 12/26/2016 00:48 [place] COMPARISON: No previous studies available for comparison. INDICATIONS : Shortness of breath. MEDICAL HISTORY : Chronic obstructive pulmonary disease. Diabetes mellitus type II. Hypertension. Liver disease SURGICAL HISTORY : None. ENCOUNTER: Initial ACUITY: 1 day PAIN SCORE: 4/10 LOCATION: Bilateral chest FINDINGS: A single view of the chest demonstrates the lungs to be symmetrically aerated without evidence of mas s, infiltrate or effusion. No evidence of pneumothorax. The cardiomediastinal contours are unremark able. Osseous structures are intact. CONCLUSION: The lungs are clear. Manolo Hernandez MD on December 26, 2016 at 1:00 Board Certified Radiologist. This report was verified electronically.
[2016-12-26] MEDS ORDERED: SODIUM CHLORIDE 0.9% FLUSH 10 ML FLUSH IVF PRN (01:15)
[2016-12-26] MEDS ORDERED: HEPARIN SODIUM - IV 10,000 UNITS/10 ML VIAL IV ONE (01:15)
[2016-12-26 01:25] LABS: PLATELET ESTIMATE SMEAR LOW (NORMAL); SCAN/DIFF AUTO DIFF CONFIRMED
[2016-12-26 01:38] LABS: APTT (PATIENT) 28.5 SEC (24.3-30.1); PROTHROMBIN TIME - PATIENT 11.2 SEC (9.8-11.6)
[2016-12-26] MEDS: HEPARIN-D5W 25,000 U/250 ML 250 ML IV PRN ×3 (01:41→05:52)
[2016-12-26 01:45] LABS: CREATINE KINASE 54 U/L (26-192)
[2016-12-26] MEDS ORDERED: HEPARIN SODIUM - IV 10,000 UNITS/10 ML VIAL IV PRN (07:15)
[2016-12-26] MEDS: SODIUM CHLOR 0.9% 1000 ML INJ 1,000 ML IV SCH ×2 (07:38→20:53)
[2016-12-26] MEDS: INSULIN ASPART SUPPLEMENTAL SCALE SQ SCH ×4 (07:38→21:56)
[2016-12-26] MEDS: SODIUM CHLORIDE 0.9% FLUSH 10 ML FLUSH IV FLUSH SCH ×2 (07:39→21:08)
[2016-12-26] MEDS: DOCUSATE SODIUM 50 MG/SENNA 8.6 MG TAB PO SCH ×2 (07:45→21:00)
[2016-12-26 08:12] LABS: APTT (PATIENT) 43.4 SEC (24.3-30.1)
[2016-12-26] MEDS ORDERED: SODIUM CHLORIDE 0.9% FLUSH 10 ML FLUSH IV FLUSH SCH (09:00)
[2016-12-26] MEDS: PRAVASTATIN SOD 40 MG TAB PO SCH (09:00)
[2016-12-26] MEDS ORDERED: ASPIRIN 81 MG CHEW TAB CHEW SCH (09:00)
[2016-12-26] MEDS: ATENOLOL 100 MG TAB PO SCH (09:12)
[2016-12-26] MEDS: amLODIPine BESYLATE 5 MG TAB PO SCH ×2 (09:12→21:07)
[2016-12-26] MEDS: ASPIRIN EC 81 MG TABEC PO SCH (09:12)
[2016-12-26] MEDS: FUROSEMIDE 20 MG TAB PO SCH (09:12)
[2016-12-26] MEDS: FAMOTIDINE 20 MG TAB PO SCH ×2 (09:12→21:11)
[2016-12-26] MEDS: SPIRONOLACTONE 25 MG TAB PO SCH ×2 (09:13→16:55)
[2016-12-26] MEDS: LOSARTAN 50 MG TAB PO SCH (09:13)
[2016-12-26] MEDS: URSODIOL 300 MG CAP PO SCH ×2 (09:13→21:07)
--- NOTE | 2016-12-26 11:47 | MB ---
cc: ALFREDO BARRIENTOS MD DATE OF CONSULTATION: 12/26/2016 REASON FOR CONSULTATION: Elevated troponin. HISTORY OF PRESENT ILLNESS The patient is a very pleasant 56-year-old woman with no history of coronary disease but who does have an extensive GI history including biliary cirrhosis, cholecystectomy, fatty liver. The patient presents with one to two with at times severe reproducible epigastric tenderness with the sensation of bloating and belching. She presents to the emergency department and her initial troponin was mildly positive and thus I was consulted. The patient is feeling reasonably well though still feels that same epigastric discomfort worse when she self palpates. She denies any chest pain, shortness of breath, lightheadedness, dizziness or syncope. PAST MEDICAL HISTORY As above. CURRENT MEDICATIONS 1. Aspirin 81 milligrams daily. 2. Pravachol 40 mg q.h.s. This has been declined due to her liver disease. 3. Amlodipine 5 mg b.i.d. 4. Atenolol 100 mg daily, 620 mg daily. 5. Cozaar 100 mg daily. 6. Aldactone 25 milligrams b.i.d. 7. Actigall 600 milligrams b.i.d. 8. Pepcid 20 milligrams b.i.d. ALLERGIES CYCLOBENZAPRINE LISINOPRIL PHYSICAL EXAMINATION VITAL SIGNS: Afebrile, pulse 53, respiratory rate 18, BP 122/65 sating 92 on two liters. General: Very pleasant obese woman in no distress. Neck: No JVD. Lungs: Clear to auscultation bilaterally. Cardiovascular: Regular rate and rhythm, no murmurs appreciated. Abdomen: Shows reproducible moderately severe epigastric tenderness. No guarding or rebound. Extremities: No edema. LABORATORY DATA: Sodium 137, potassium 3.6, chloride 103, bicarb 27.1, BUN 12, creatinine 0.85, glucose 111, troponin 0.01, 0.10. Lipase is normal at 167. INR is 1.0. White count 10.7, hematocrit 37.6, platelets 91. EKG shows sinus rhythm without any acute ST or T-wave changes. IMPRESSION: Atypical chest pain/abdominal pain with indeterminate troponin. The patient's symptoms are clearly GI related but her troponin is mildly elevated. I still think that likely an abdominal process is causing both her symptoms and the troponin elevation. Will have her undergo a nuclear stress test and will ask the primary team to perform the GI workup. Further recommendations based on her stress test. Thank you again for the opportunity to participate in this patient's care. MD LIBRADO Adamson/YOUSUF /10:34 AM /11:38 AM
--- NOTE | 2016-12-26 12:53 | HHI.HP ---
[facility] Physician Obie Squires MD Admission Diagnosis nstemi Diagnoses: Travel History International Travel<30 Days: No Contact w/Intl Traveler <30 Da: No Traveled to Known Affected Are: No History of Present Illness This is a pleasant 56 y/o Female who was seen in ER of [place] and then transferred to this facility, due to Nausea and epigastric discomfort since one day before coming to ER, Patient states she ate fried food on Tuesday evening. Patient thought she may have had some food poisoning but did not have any vomiting. Patient does admit to nausea. Patient denies any chest pain or shortness of breath. Patient is status post cholecystectomy has diagnosis of primary biliary cirrhosis and notes that she does feel some discomfort in the subxiphoid region and reports he right upper quadrant she felt fullness but this is resolved. Patient rates discomfort for over 10 in intensity. Discomfort is nonradiating to the neck jaw back shoulder or arms. Patient does have history of hypertension dyslipidemia and diabetes as well as tobacco use. Patient denies any history of heart disease or cardiac evaluation. Patient has noted some mild loose stool. Patient is unable to identify exacerbating or alleviating factors. Seen by metalworking specialist Doctor Pito Marks, asked for Nuclear stress test but recommended GI workup. will continue Gastric protection she is improving gastric pierce if improving and rule out Cardiac pathology will follow with PCP after 8 weeks of PPIs. Review of Systems Constitutional: DENIES: Fever, Chills, Change in appetite Endocrine: DENIES: Heat/cold intolerance Eyes: DENIES: Blurred vision, Eye pain Except as stated in HPI: all other systems reviewed are Neg Past Family Social History Past Medical History Primary Biliary Cirrhosis COPD DM II Hypertension Hyperlipidemia Tobacco dependence Past Surgical History Cholecystectomy Liver biopsy x 2 C section x 2 Reported Medications Reported Meds & Active Scripts Active Reported Questran (Cholestyramine) 4 Gm/Dose Powd 4 Gm PO BID 1 level scoopful of powder contains 4 grams of cholestyramine. Lasix (Furosemide) 20 Mg Tab 20 Mg PO DAILY Spironolactone 25 Mg Tab 25 Mg PO BIDPC Ursodiol 300 Mg Cap 600 Mg PO BID Ultram (Tramadol HCl) 50 Mg Tab 50 Mg PO Q12HR NEB PRN Zantac (Ranitidine HCl) 150 Mg Tab 150 Mg PO BID Metformin (Metformin HCl) 500 Mg Tab 500 Mg PO BIDPC With meals Cozaar (Losartan Potassium) 100 Mg Tab 100 Mg PO DAILY Vitamin D3 (Cholecalciferol) 1,000 Unit Tab 2,000 Units PO DAILY Atenolol 100 Mg Tab 100 Mg PO DAILY Amlodipine (Amlodipine Besylate) 5 Mg Tab 5 Mg PO BID Allergies: Coded Allergies: cyclobenzaprine (Unverified Allergy, Severe, Restlessness, 12/25/16) RESTLESS LEG lisinopril (Unverified Allergy, Severe, Rash, 12/25/16) Active Ordered Medications Current Medications Medications (Trade) Dose Ordered Sig/Migue Route Start Time Stop Time Status Last Admin (Nitrostat Sl) 0.4 mg Q5M PRN SL 12/26/16 00:30 12/26/16 00:45 (Nitroglycerin 2% Oint) 0.5 inch Q6HR PRN TOPICAL 12/26/16 01:00 (D50w (Vial) Inj) 50 ml UNSCH PRN IV PUSH 12/26/16 01:00 (Glucagon Inj) 1 mg UNSCH PRN OTHER 12/26/16 01:00 (NovoLOG SUPPLEMENTAL SCALE) 1 ACHS SLIDING SCALE SQ 12/26/16 08:00 12/26/16 12:09 (Ecotrin Ec) 81 mg DAILY PO 12/26/16 09:00 12/26/16 09:12 (Pravachol) 40 mg DAILY PO 12/26/16 09:00 Sodium Chloride 1,000 ml @ 100 mls/hr Q10H IV 12/26/16 00:59 12/26/16 07:38 (NS Flush) 2 ml UNSCH PRN IV FLUSH 12/26/16 01:00 (NS Flush) 2 ml BID IV FLUSH 12/26/16 09:00 (Zofran Inj) 4 mg Q6H PRN IVP 12/26/16 01:00 ([place] 5-325 Mg) 1 tab Q4H PRN PO 12/26/16 01:00 12/26/16 01:44 (Morphine Inj) 2 mg Q3H PRN IV PUSH 12/26/16 01:00 (Heather-Colace) 1 tab BID PO 12/26/16 09:00 (Milk Of Magnesia Liq) 30 ml Q12H PRN PO 12/26/16 01:00 (Senokot) 17.2 mg Q12H PRN PO 12/26/16 01:00 (Dulcolax Supp) 10 mg DAILY PRN RECTAL 12/26/16 01:00 (Lactulose Liq) 30 ml DAILY PRN PO 12/26/16 01:00 (Norvasc) 5 mg BID PO 12/26/16 09:00 12/26/16 09:12 (Tenormin) 100 mg DAILY PO 12/26/16 09:00 12/26/16 09:12 (Lasix) 20 mg DAILY PO 12/26/16 09:00 12/26/16 09:12 (Cozaar) 100 mg DAILY PO 12/26/16 09:00 12/26/16 09:13 (Aldactone) 25 mg BIDPC PO 12/26/16 09:00 12/26/16 09:13 (Actigall) 600 mg BID PO 12/26/16 09:00 12/26/16 09:13 (Pepcid) 20 mg BID PO 12/26/16 09:00 12/26/16 09:12 (Heparin Inj) 5,000 units UNSCH PRN IV 12/26/16 07:15 (Heparin Inj) 2,500 units UNSCH PRN IV 12/26/16 07:15 Heparin Sodium/ Dextrose 250 ml @ 14.208 mls/ hr TITRATE PRN IV 12/26/16 01:15 12/26/16 01:41 Family History Father with CAD. DM II Social History Tobacco dependence since she was 17 years old Physical Exam Vital Signs Vital Signs Date Time Temp Pulse Resp B/P (MAP) Pulse Ox O2 Delivery O2 Flow Rate FiO2 12/26/16 12:01 42 12/26/16 11:44 51 12/26/16 11:44 97.7 45 18 127/68 (87) 95 12/26/16 10:05 53 12/26/16 08:36 92 21 12/26/16 08:30 97.3 63 18 122/65 (84) 92 12/26/16 08:30 53 12/26/16 06:09 54 12/26/16 05:30 58 12/26/16 05:20 97.7 58 16 134/68 (90) 98 12/26/16 05:00 59 12/26/16 04:52 56 20 143/67 (92) 98 12/26/16 03:35 95 Nasal Cannula 2.00 12/26/16 03:04 69 20 132/59 (83) 12/26/16 02:30 20 12/26/16 02:00 80 20 151/76 (101) 99 12/26/16 01:00 71 20 146/67 (93) 99 12/26/16 00:53 20 12/26/16 00:49 81 20 149/81 (103) 98 12/26/16 00:30 64 20 149/81 (103) 99 12/25/16 22:14 98.5 78 16 169/87 (114) 97 Physical Exam GENERAL: Obese patient in no acute distress. SKIN: Warm and dry. HEAD: Normocephalic. EYES: No scleral icterus. No injection or drainage. NECK: Supple, trachea midline. No JVD or lymphadenopathy. CARDIOVASCULAR: Regular rate and rhythm without murmurs, gallops, or rubs. RESPIRATORY: Breath sounds equal bilaterally. No accessory muscle use. GASTROINTESTINAL: Abdomen soft, mild reproducible epigastric tenderness to palpation without guarding or rebound, nondistended. MUSCULOSKELETAL: No cyanosis, or edema. BACK: Nontender without obvious deformity. No CVA tenderness. Laboratory Laboratory Tests Test 12/25/16 23:35 12/26/16 01:10 12/26/16 07:42 White Blood Count 7.7 Red Blood Count 4.13 Hemoglobin 12.4 Hematocrit 37.6 Mean Corpuscular Volume 91.2 Mean Corpuscular Hemoglobin 29.9 Mean Corpuscular Hemoglobin Concent 32.8 Red Cell Distribution Width 16.1 Platelet Count 91 Mean Platelet Volume 9.1 Neutrophils (%) (Auto) 52.6 Lymphocytes (%) (Auto) 38.0 Monocytes (%) (Auto) 6.8 Eosinophils (%) (Auto) 2.0 Basophils (%) (Auto) 0.6 Neutrophils # (Auto) 4.1 Lymphocytes # (Auto) 2.9 Monocytes # (Auto) 0.5 Eosinophils # (Auto) 0.2 Basophils # (Auto) 0.0 CBC Comment AUTO DIFF Differential Comment AUTO DIFF CONFIRMED Platelet Estimate LOW Blood Urea Nitrogen 12 Creatinine 0.85 Random Glucose 111 Total Protein 8.2 Albumin 3.2 Calcium Level 9.1 Alkaline Phosphatase 122 Aspartate Amino Transf (AST/SGOT) 39 Alanine Aminotransferase (ALT/SGPT) 40 Total Bilirubin 1.2 Sodium Level 137 Potassium Level 3.6 Chloride Level 103 Carbon Dioxide Level 27.1 Anion Gap 7 Estimat Glomerular Filtration Rate 69 Lactic Acid Level 1.2 Total Creatine Kinase 54 Troponin I 0.11 0.10 Lipase 167 Prothrombin Time 11.2 Prothromb Time International Ratio 1.0 Activated Partial Thromboplast Time 28.5 43.4 Result Diagram: 12/25/16 2335 12/25/16 2335 Imaging Last Impressions Chest X-Ray 12/26/16 0000 Signed Impressions: Service Date/Time: Monday, December 26, 2016 00:48 - CONCLUSION: The lungs are clear. MD Jennifer Lemus VTE Risk Assessment Caprini VTE Risk Assessment: Mod/High Risk (score >= 2) Caprini Risk Assessment Model Point Value = 1 Point Value = 2 Point Value = 3 Point Value = 5 Age 41-60 Minor surgery BMI > 25 kg/m2 Swollen legs Varicose veins or History of unexplained or recurrent spontaneous Oral contraceptives or hormone replacement Sepsis (< 1 month) Serious lung disease, including pneumonia (< 1 month) Abnormal pulmonary function Acute myocardial infarction Congestive heart failure (< 1 month) History of inflammatory bowel disease Medical patient at bed rest Age 61-74 Arthroscopic surgery Major open surgery (> 45 min) Laparoscopic surgery (> 45 min) Malignancy Confined to bed (> 72 hours) Immobilizing plaster cast Central venous access Age >= 75 History of VTE Family history of VTE Factor V Leiden Prothrombin [id number] Lupus anticoagulant Anticardiolipin antibodies Elevated serum homocysteine Heparin-induced thrombocytopenia Other congenital or acquired thrombophilia Stroke (< 1 month) Elective arthroplasty Hip, pelvis, or leg fracture Acute spinal cord injury (< 1 month) Prophylaxis Regimen Total Risk Factor Score Risk Level Prophylaxis Regimen 0-1 Low Early ambulation 2 Moderate Order ONE of the following: *Sequential Compression Device (SCD) *Heparin 5000 units SQ BID 3-4 Higher Order ONE of the following medications: *Heparin 5000 units SQ TID *Enoxaparin/Lovenox 40 mg SQ daily (WT < 150 kg, CrCl > 30 mL/min) *Enoxaparin/Lovenox 30 mg SQ daily (WT < 150 kg, CrCl > 10-29 mL/min) *Enoxaparin/Lovenox 30 mg SQ BID (WT < 150 kg, CrCl > 30 mL/min) AND/OR *Sequential Compression Device (SCD) 5 or more Highest Order ONE of the following medications: *Heparin 5000 units SQ TID (Preferred with Epidurals) *Enoxaparin/Lovenox 40 mg SQ daily (WT < 150 kg, CrCl > 30 mL/min) *Enoxaparin/Lovenox 30 mg SQ daily (WT < 150 kg, CrCl > 10-29 mL/min) *Enoxaparin/Lovenox 30 mg SQ BID (WT < 150 kg, CrCl > 30 mL/min) AND *Sequential Compression Device (SCD) Assessment and Plan Assessment and Plan 1. NSTEMI was discussed with metalworking specialist Doctor Pito Marks and ordered to transfer to the patient to the Main hospital, to continue her care, today recommended to continue with Heparin drip and get her Stress test. 2. Primary Biliary cirrhosis by history will need to follow with GI as outpatient 3. COPD on bronchodilator, Mucolytic and incentive spirometry. 4. DM II on sliding scale 5. Hypertension controlled 6. Hyperlipidemia continue Home medicines asked for Lipid Profile. 7. Tobacco dependence strongly recommended to stop smoking 8. Morbid Obesity strongly recommended to stop smoking. DVT prophylaxis with Heparin Drip. Code Status Full Code. Discussed Condition With Patient and nurse Miss IbarraLilianTaryn Pepe Aragon MD Dec 26, 2016 12:53
[2016-12-26 13:15] LABS: APTT (PATIENT) 36.9 SEC (24.3-30.1)
[2016-12-26] MEDS: HEPARIN SODIUM - IV 10,000 UNITS/10 ML VIAL IV PRN (13:23)
--- NOTE | 2016-12-26 13:56 | EKG ---
Date Performed: 12/25/2016 Time Performed: 23:39:01 PTAGE: 56 years EKG: Sinus rhythm Compared to previous tracing, T wave change is slightly improved. Otherwise no signficant change NOR MAL ECG PREVIOUS TRACING : 12/24/2014 09.33 DOCTOR: Rory Valentino Interpretating Date/Time 12/26/2016 13:55:37
[2016-12-26] MEDS: SUCRALFATE 1 GM TAB PO SCH ×2 (16:55→21:08)
[2016-12-26 18:19] LABS: APTT (PATIENT) 44.8 SEC (24.3-30.1)
[2016-12-26 20:12] LABS: HDL CHOLESTEROL 38.3 MG/DL (40.0-60.0)
[2016-12-27] VITALS (12 sets, daily range): BP systolic 111–123; BP diastolic 54–70; PULSE 44–71; RESP 16; TEMP 98–98.2; O2SAT 94–98
[2016-12-27] MEDS: HEPARIN-D5W 25,000 U/250 ML 250 ML IV PRN (00:17)
[2016-12-27 00:34] LABS: APTT (PATIENT) 39.5 SEC (24.3-30.1)
[2016-12-27] MEDS: SODIUM CHLOR 0.9% 1000 ML INJ 1,000 ML IV SCH ×2 (06:32→13:14)
[2016-12-27 06:43] LABS: AUTOMATED NEUTROPHIL # 3.5 TH/MM3 (1.8-7.7); BASOPHIL % 0.5 % (0.0-2.0); EOSINOPHIL # 0.2 TH/MM3 (0-0.4); EOSINOPHIL % 2.3 % (0.0-4.0); HEMATOCRIT 33.9 % (35.0-46.0); LYMPH % 40.8 % (9.0-44.0); LYMPHOCYTE # 2.9 TH/MM3 (1.0-4.8); MEAN CELL VOLUME 91.7 FL (80.0-100.0); MEAN CORPUSCULAR HEMOGLOBIN 31.1 PG (27.0-34.0); MEAN CORPUSCULAR HGB CONC 33.9 % (32.0-36.0); MONO % 6.7 % (0.0-8.0); NEUT % 49.7 % (16.0-70.0); PLATELET COUNT 79 TH/MM3 (150-450); RED BLOOD COUNT 3.69 MIL/MM3 (4.00-5.30); RED CELL DISTRIBUTION WIDTH 17.2 % (11.6-17.2); WHITE BLOOD COUNT 7.1 TH/MM3 (4.0-11.0)
[2016-12-27 06:50] LABS: APTT (PATIENT) 37.7 SEC (24.3-30.1)
[2016-12-27 07:17] LABS: ALT (GPT) 30 U/L (10-53); ANION GAP 7 MEQ/L (5-15); AST (GOT) 31 U/L (15-37); BICARBONATE 26.1 MEQ/L (21.0-32.0); BLOOD UREA NITROGEN 14 MG/DL (7-18); CHLORIDE 109 MEQ/L (98-107); GLOMERULAR FILTRATION RATE 64 ML/MIN (>89); POTASSIUM 3.8 MEQ/L (3.5-5.1); SODIUM (NA) 142 MEQ/L (136-145)
[2016-12-27 07:20] LABS: ALKALINE PHOSPHATASE 105 U/L (45-117); TOTAL BILIRUBIN ADULT 0.7 MG/DL (0.2-1.0)
[2016-12-27] MEDS: INSULIN ASPART SUPPLEMENTAL SCALE SQ SCH ×2 (07:27→11:43)
[2016-12-27 07:31] LABS: HEMO FLAGS AUTO DIFF
[2016-12-27 07:34] LABS: PLATELET ESTIMATE SMEAR LOW (NORMAL); PLATELET MORPHOLOGY NORMAL (NORMAL); SCAN/DIFF AUTO DIFF CONFIRMED
[2016-12-27] MEDS: HEPARIN SODIUM - IV 10,000 UNITS/10 ML VIAL IV PRN (08:40)
[2016-12-27] MEDS: FAMOTIDINE 20 MG TAB PO SCH (08:40)
[2016-12-27] MEDS: DOCUSATE SODIUM 50 MG/SENNA 8.6 MG TAB PO SCH (08:40)
[2016-12-27] MEDS: ATENOLOL 100 MG TAB PO SCH (08:40)
[2016-12-27] MEDS: SPIRONOLACTONE 25 MG TAB PO SCH (08:40)
[2016-12-27] MEDS: URSODIOL 300 MG CAP PO SCH (08:40)
[2016-12-27] MEDS: LOSARTAN 50 MG TAB PO SCH (08:40)
[2016-12-27] MEDS: amLODIPine BESYLATE 5 MG TAB PO SCH (08:41)
[2016-12-27] MEDS: SUCRALFATE 1 GM TAB PO SCH ×2 (08:41→11:43)
[2016-12-27] MEDS: ASPIRIN EC 81 MG TABEC PO SCH (08:41)
[2016-12-27] MEDS: PRAVASTATIN SOD 40 MG TAB PO SCH (08:41)
[2016-12-27] MEDS: FUROSEMIDE 20 MG TAB PO SCH (08:42)
[2016-12-27] MEDS: SODIUM CHLORIDE 0.9% FLUSH 10 ML FLUSH IV FLUSH SCH (08:42)
--- NOTE | 2016-12-27 09:31 | PD.CARD.PN ---
Subjective Subjective Remarks Pt starting to feel better, still w/ abdominal pain but improving Objective Medications Administered Medications Medications (Trade) Dose Ordered Sig/Migue Route PRN Reason Start Time Stop Time Status Last Admin Dose Admin Nitroglycerin (Nitrostat Sl) 0.4 mg Q5M PRN SL CHEST PAIN 12/26/16 00:30 12/26/16 00:45 Insulin Aspart (NovoLOG SUPPLEMENTAL SCALE) 1 ACHS SLIDING SCALE SQ 12/26/16 08:00 12/26/16 21:56 Aspirin (Ecotrin Ec) 81 mg DAILY PO 12/26/16 09:00 12/27/16 08:41 Pravastatin Sodium (Pravachol) 40 mg DAILY PO 12/26/16 09:00 12/27/16 08:41 Sodium Chloride 1,000 ml @ 100 mls/hr Q10H IV 12/26/16 00:59 12/27/16 06:32 Sodium Chloride (NS Flush) 2 ml BID IV FLUSH 12/26/16 09:00 12/26/16 21:08 Acetaminophen/ Hydrocodone Bitart ([place] 5-325 Mg) 1 tab Q4H PRN PO PAIN SCALE 3 TO 5 12/26/16 01:00 12/26/16 01:44 Senna/Docusate Sodium (Heather-Colace) 1 tab BID PO 12/26/16 09:00 12/27/16 08:40 Amlodipine Besylate (Norvasc) 5 mg BID PO 12/26/16 09:00 12/27/16 08:41 Atenolol (Tenormin) 100 mg DAILY PO 12/26/16 09:00 12/27/16 08:40 Furosemide (Lasix) 20 mg DAILY PO 12/26/16 09:00 12/27/16 08:42 Losartan Potassium (Cozaar) 100 mg DAILY PO 12/26/16 09:00 12/27/16 08:40 Spironolactone (Aldactone) 25 mg BIDPC PO 12/26/16 09:00 12/27/16 08:40 Ursodiol (Actigall) 600 mg BID PO 12/26/16 09:00 12/27/16 08:40 Famotidine (Pepcid) 20 mg BID PO 12/26/16 09:00 12/27/16 08:40 Heparin Sodium (Porcine) (Heparin Inj) 2,500 units UNSCH PRN IV APTT 25 TO 39 12/26/16 07:15 12/27/16 08:40 Heparin Sodium/ Dextrose 250 ml @ 14.208 mls/ hr TITRATE PRN IV Coagulation management 12/26/16 01:15 12/27/16 00:17 Sucralfate (Carafate) 1 gm ACHS PO 12/26/16 17:00 12/27/16 08:41 Vital Signs / I&O Vital Signs Date Time Temp Pulse Resp B/P (MAP) Pulse Ox O2 Delivery O2 Flow Rate FiO2 12/27/16 06:13 47 12/27/16 05:05 46 12/27/16 04:37 47 12/27/16 03:23 98.0 44 16 111/62 (78) 94 12/27/16 03:02 46 12/27/16 02:06 52 12/27/16 01:01 71 12/27/16 00:20 44 12/26/16 23:30 97.8 56 16 109/66 (80) 94 12/26/16 23:06 55 12/26/16 22:03 56 12/26/16 21:00 45 12/26/16 20:45 49 12/26/16 20:36 94 12/26/16 19:30 98.4 50 16 125/71 (89) 94 12/26/16 19:20 45 12/26/16 18:01 49 12/26/16 17:01 45 12/26/16 15:51 97.4 45 16 107/62 (77) 95 12/26/16 15:51 42 12/26/16 14:05 48 12/26/16 13:01 46 12/26/16 12:01 42 12/26/16 11:44 51 12/26/16 11:44 97.7 45 18 127/68 (87) 95 12/26/16 10:05 53 I/O 12/26/16 12/26/16 12/26/16 12/27/16 12/27/16 12/27/16 07:00 15:00 23:00 07:00 15:00 23:00 Intake Total 570 ml 1599 ml 595 ml Output Total 800 ml 300 ml Balance 570 ml 799 ml 295 ml Intake Oral 120 ml 600 ml 595 ml IV Total 450 ml 999 ml Output Urine Total 800 ml 300 ml # Bowel Movements 0 Physical Exam GENERAL: This is a well-nourished, well-developed patient, in no apparent distress. CARDIOVASCULAR: Regular rate and rhythm without murmurs, gallops, or rubs. RESPIRATORY: Clear to auscultation. Breath sounds equal bilaterally. No wheezes , rales, or rhonchi. GASTROINTESTINAL: Mildly tender epigastric region MUSCULOSKELETAL: Extremities without clubbing, cyanosis, or edema. NEURO: Alert & Oriented x4 to person, place, time, situation. Moves all ext x4 Laboratory Laboratory Tests Test 12/26/16 12:40 12/26/16 17:51 12/27/16 00:03 12/27/16 06:25 Activated Partial Thromboplast Time 36.9 SEC 44.8 SEC 39.5 SEC 37.7 SEC Troponin I 0.09 NG/ML White Blood Count 7.1 TH/MM3 Red Blood Count 3.69 MIL/MM3 Hemoglobin 11.5 GM/DL Hematocrit 33.9 % Mean Corpuscular Volume 91.7 FL Mean Corpuscular Hemoglobin 31.1 PG Mean Corpuscular Hemoglobin Concent 33.9 % Red Cell Distribution Width 17.2 % Platelet Count 79 TH/MM3 Mean Platelet Volume 10.0 FL Neutrophils (%) (Auto) 49.7 % Lymphocytes (%) (Auto) 40.8 % Monocytes (%) (Auto) 6.7 % Eosinophils (%) (Auto) 2.3 % Basophils (%) (Auto) 0.5 % Neutrophils # (Auto) 3.5 TH/MM3 Lymphocytes # (Auto) 2.9 TH/MM3 Monocytes # (Auto) 0.5 TH/MM3 Eosinophils # (Auto) 0.2 TH/MM3 Basophils # (Auto) 0.0 TH/MM3 CBC Comment AUTO DIFF Differential Comment AUTO DIFF CONFIRMED Platelet Estimate LOW Platelet Morphology Comment NORMAL Blood Urea Nitrogen 14 MG/DL Creatinine 0.91 MG/DL Random Glucose 107 MG/DL Total Protein 6.8 GM/DL Albumin 2.8 GM/DL Calcium Level 8.4 MG/DL Alkaline Phosphatase 105 U/L Aspartate Amino Transf (AST/SGOT) 31 U/L Alanine Aminotransferase (ALT/SGPT) 30 U/L Total Bilirubin 0.7 MG/DL Sodium Level 142 MEQ/L Potassium Level 3.8 MEQ/L Chloride Level 109 MEQ/L Carbon Dioxide Level 26.1 MEQ/L Anion Gap 7 MEQ/L Estimat Glomerular Filtration Rate 64 ML/MIN Imaging Last Impressions Chest X-Ray 12/26/16 0000 Signed Impressions: Service Date/Time: Monday, December 26, 2016 00:48 - CONCLUSION: The lungs are clear. Manolo Heranndez MD Assessment and Plan Problem List: (1) Abdominal pain ICD Codes: R10.9 - Unspecified abdominal pain Plan: Improving; workup per GI team (2) Elevated troponin ICD Codes: R74.8 - Abnormal levels of other serum enzymes Plan: non-specific and unlikely related to ACS; nuc stress pending Assessment and Plan If no significant ischemia on nuc stress ok to d/c home from cardiac standpoint and would be happy to f/u with her in my office. Pito Marks MD Dec 27, 2016 09:31
[2016-12-27] MEDS ORDERED: REGADENOSON INJ 0.4 MG/5 ML SYR ONE (10:10)
--- NOTE | 2016-12-27 10:30 | HHI.PR ---
Subjective Remarks Follow-up elevated cardiac enzyme/epigastric pain 12/27/16-patient seen and examined, reporting improvement of epigastric pain. Denies ever having any chest pain. States she has a follow-up appointment with GI in one month for EGD. Objective Vitals Vital Signs Date Time Temp Pulse Resp B/P (MAP) Pulse Ox O2 Delivery O2 Flow Rate FiO2 12/27/16 08:00 98.1 48 16 121/54 (76) 94 12/27/16 08:00 49 12/27/16 06:13 47 12/27/16 05:05 46 12/27/16 04:37 47 12/27/16 03:23 98.0 44 16 111/62 (78) 94 12/27/16 03:02 46 12/27/16 02:06 52 12/27/16 01:01 71 12/27/16 00:20 44 12/26/16 23:30 97.8 56 16 109/66 (80) 94 12/26/16 23:06 55 12/26/16 22:03 56 12/26/16 21:00 45 12/26/16 20:45 49 12/26/16 20:36 94 12/26/16 19:30 98.4 50 16 125/71 (89) 94 12/26/16 19:20 45 12/26/16 18:01 49 12/26/16 17:01 45 12/26/16 15:51 97.4 45 16 107/62 (77) 95 12/26/16 15:51 42 12/26/16 14:05 48 12/26/16 13:01 46 12/26/16 12:01 42 12/26/16 11:44 51 12/26/16 11:44 97.7 45 18 127/68 (87) 95 I/O 12/26/16 12/26/16 12/26/16 12/27/16 12/27/16 12/27/16 07:00 15:00 23:00 07:00 15:00 23:00 Intake Total 570 ml 1599 ml 595 ml Output Total 800 ml 300 ml Balance 570 ml 799 ml 295 ml Intake Oral 120 ml 600 ml 595 ml IV Total 450 ml 999 ml Output Urine Total 800 ml 300 ml # Bowel Movements 0 Result Diagram: 12/27/1662412/27/16624 Imaging Last Impressions Chest X-Ray 12/26/16 0000 Signed Impressions: Service Date/Time: Monday, December 26, 2016 00:48 - CONCLUSION: The lungs are clear. Manolo Hernandez MD Objective Remarks GENERAL: NAD and obese SKIN: Warm and dry. HEAD: Normocephalic. EYES: No scleral icterus. No injection or drainage. NECK: Supple, trachea midline. No JVD or lymphadenopathy. CARDIOVASCULAR: Regular rate and rhythm without murmurs, gallops, or rubs. RESPIRATORY: Breath sounds equal bilaterally. No accessory muscle use. GASTROINTESTINAL: Abdomen soft, non-tender, nondistended. MUSCULOSKELETAL: No cyanosis, or edema. BACK: Nontender without obvious deformity. No CVA tenderness. A/P Problem List: (1) Epigastric abdominal pain ICD Code: R10.13 - Epigastric pain (2) Elevated troponin ICD Code: R74.8 - Abnormal levels of other serum enzymes (3) Abdominal pain ICD Code: R10.9 - Unspecified abdominal pain Assessment and Plan 56-year-old female with Elevated troponin I Appreciate input from cardiology Plan for Lexiscan stress test, and if negative patient can be discharged home Continue with heparin drip, aspirin Epigastric abdominal pain Patient has a follow-up appointment with GI in one month for scheduled EGD Currently on Zantac, recommend Nexium instead Primary Biliary cirrhosis Follow-up outpatient with GI Currently on Actigall COPD on bronchodilator, Mucolytic and incentive spirometry. DM II on sliding scale Should resume metformin Hypertension controlled Continue Norvasc, Cozaar, atenolol Hyperlipidemia Currently on Pravachol Tobacco dependence strongly recommended to stop smoking Morbid Obesity strongly recommended to stop smoking. Matthew Krishnan MD Dec 27, 2016 10:30
--- NOTE | 2016-12-27 12:15 | RADRPT ---
EXAM DATE/TIME: 12/26/2016 15:22 [facility] COMPARISON: No previous studies available for comparison. INDICATIONS : Chest pain and abdomen pain. Angina. DOSE: 31.3 mCi Tc99m Myoview at stress. 31.2 mCi Tc99m Myoview at rest. 0.4 mg Lexiscan STRESS SYMPTOMS: Nausea and weird feeling. EJECTION FRACTION: 46% MEDICAL HISTORY : Chronic obstructive pulmonary disease. Diabetes mellitus type 2. Hypertension. SURGICAL HISTORY : section. Cholecystectomy. ENCOUNTER: Initial ACUITY: 1 day PAIN SCALE: 0/10 LOCATION: Substernal chest TECHNIQUE: The patient underwent pharmacologic stress with infusion of prescribed dose. Continuous ECG tracing was monitored during stress. Gated SPECT imaging was performed after stress and conventional SPECT i maging was performed at rest. The examination was performed on a SPECT/CT scanner, both attenuation and non-corrected datasets were reviewed. FINDINGS: DISTRIBUTION: The maximum perfused segment at stress is in the inferior wall. PERFUSION STUDY: The pattern of perfusion at stress is within normal limits. GATED STUDY: The examination demonstrates mild dilation of the ventricular cavity with a mild global hypokinesis. Ejection fraction is estimated at 46%. CONCLUSION: 1. No reversible perfusion defect to indicate stress-induced myocardial ischemia. 2. Decreased ejection fraction at 46%. The gated data would suggest a mild global hypokinesis. RISK CATEGORY: Intermediate (1-3% Annual Mortality Rate) Dago Queen MD on December 27, 2016 at 12:13 Board Certified Radiologist. This report was verified electronically.
--- NOTE | 2016-12-27 13:35 | HHI.PR ---
Addendum to Inpatient Note Addendum Reason: Additional Documentation Additional Information Stress test negative therefore patient will be discharged home. She will need follow-up with GI for EGD in one month. Discharge patient to home Condition on discharge: Improved Regular Diet as tolerated Ad Adri activity Rx written:none Follow-up with primary care physician in 1 week Follow-up with GI in one month for EGD Matthew Krishnan MD Dec 27, 2016 13:35
[2016-12-27 13:37] LABS: HEMOGLOBIN A1b 1.8 %; HEMOGLOBIN LA1C 1.9 %; HEMOGLOBIN P3 3.9 %
== END 2016-12-27 15:15 | disposition home or self-care (01) | DRG 392 ==
LOC: PHED 22:08 → PHEDA 12-26 01:08 → HCIN 12-26 05:05
PROVIDERS: ADMIT Hospitalist; ATTEND Hospitalist
DX: R10.13 Epigastric pain (principal); K74.3 Primary biliary cirrhosis; Z68.42 Body mass index [BMI] 45.0-49.9, adult; R74.8 Abnormal levels of other serum enzymes; E66.01 Morbid (severe) obesity due to excess calories; K76.0 Fatty (change of) liver, not elsewhere classified; I10 Essential (primary) hypertension; J44.9 Chronic obstructive pulmonary disease, unspecified; E78.5 Hyperlipidemia, unspecified; E11.9 Type 2 diabetes mellitus without complications; Z79.84 Long term (current) use of oral hypoglycemic drugs; F17.200 Nicotine dependence, unspecified, uncomplicated
CPT/HCPCS: 71010; 78452; 80053; 80061; 82272; 82550; 82948; 83036; 83605; 83690; 84484; 84703; 85025; 85610; 85730; 93005; 93017; 96374; 96375; A9502; C9113; J1644; J1815; J2405; J2785; J7030

== ENCOUNTER → 2017-02-22 | Outpatient (CLI) | payer OTHER ==
[~2017-02-22] MED LIST changes: -AMOX875T PO; +FURO1TAB62 PO; -HYCOS PO; +QUES4POW2 PO; +SPIR25TA PO; +TRAM50 PO; -ULTR50TA5 PO
[2017-02-22 10:25] LABS: BASOPHIL % 0.6 % (0.0-2.0); EOSINOPHIL # 0.1 TH/MM3 (0-0.4); EOSINOPHIL % 2.3 % (0.0-4.0); HEMATOCRIT 39.3 % (35.0-46.0); LYMPH % 36.4 % (9.0-44.0); MEAN CELL VOLUME 90.1 FL (80.0-100.0); MEAN CORPUSCULAR HEMOGLOBIN 29.6 PG (27.0-34.0); MEAN CORPUSCULAR HGB CONC 32.9 % (32.0-36.0); MONO % 6.8 % (0.0-8.0); NEUT % 53.9 % (16.0-70.0); PLATELET COUNT 84 TH/MM3 (150-450); RED BLOOD COUNT 4.36 MIL/MM3 (4.00-5.30); RED CELL DISTRIBUTION WIDTH 16.2 % (11.6-17.2); WHITE BLOOD COUNT 5.5 TH/MM3 (4.0-11.0)
[2017-02-22 10:33] LABS: HEMO FLAGS AUTO DIFF
[2017-02-22 10:52] LABS: PLATELET ESTIMATE SMEAR LOW (NORMAL); PLATELET MORPHOLOGY NORMAL (NORMAL); SCAN/DIFF AUTO DIFF CONFIRMED
[2017-02-22 13:13] LABS: BICARBONATE 27.2 MEQ/L (21.0-32.0); POTASSIUM 3.9 MEQ/L (3.5-5.1)
== END ==
LOC: PLAB 09:20
PROVIDERS: ATTEND Internal Medicine Gastroenterology
DX: R07.89 Other chest pain (principal); D69.6 Thrombocytopenia, unspecified; E11.9 Type 2 diabetes mellitus without complications
CPT/HCPCS: 36415; 80048; 85025

== ENCOUNTER 2017-04-04 11:18 | Observation (INO) | payer OTHER ==
[~2017-04-04] VITALS: Ht 154.9 cm; Wt 120.0 kg
[2017-04-04] MEDS ORDERED: IOHEXOL 350 MG/ML 10 ML VIAL (for RAD DIAG) IVCONTRAST ONE ×2 (11:19→15:07)
[2017-04-04 11:20] VITALS: BP 139/66; PULSE 84; RESP 20; TEMP 98.7; O2SAT 99
--- NOTE | 2017-04-04 11:50 | PD ---
HPI Chief Complaint: GI Complaint Time Seen by Provider: 11:40 Travel History International Travel<30 days: No Contact w/Intl Traveler<30days: No Traveled to known affect area: No History of Present Illness HPI PATIENT C/O INIITAL EPIG AREA PAIN, BAND LIKE, 6/10, BUT THEN RADIATED TO LEFT SHOULDER, AND NOW HAS SUSTAINED LEFT SHOULDER BLADE AREA PAIN, 7/10, SHARP.... ALL:IRAM AND FLEXERIL PMH: DM, HTN, HYPERCHOL, GB REMOVAL, LIVER DISEASE ?BILIARY CIRRHOSIS PFSH Past Medical History Hx Anticoagulant Therapy: Yes Asthma: Yes Cancer: No Cardiovascular Problems: Yes High Cholesterol: Yes COPD: Yes Diabetes: Yes Patient Takes Glucophage: Yes Diminished Hearing: No Endocrine: No Genitourinary: No Hepatitis: Yes (BILIARY CIRRHOSIS) Hiatal Hernia: No Hypertension: Yes Immune Disorder: No Musculoskeletal: No Neurologic: No Psychiatric: No Reproductive: No Respiratory: No Thyroid Disease: No ?: Not Menopausal: Yes Past Surgical History Abdominal Surgery: Yes (LIVER BX X2, cholecystectomy) AICD: No Section: Yes (X's 2) Cholecystectomy: Yes Gynecologic Surgery: Yes (C-SECT. X2) Joint Replacement: No Pacemaker: No Other Surgery: Yes Social History Alcohol Use: No Tobacco Use: Yes Substance Use: No Allergies-Medications (Allergen,Severity, Reaction): Coded Allergies: cyclobenzaprine (Unverified Allergy, Severe, Restlessness, 04/04/17) RESTLESS LEG lisinopril (Unverified Allergy, Severe, Rash, 04/04/17) Reported Meds & Prescriptions Reported Meds & Active Scripts Active Reported Lasix (Furosemide) 20 Mg Tab 20 Mg PO DAILY Spironolactone 25 Mg Tab 25 Mg PO BIDPC Ursodiol 300 Mg Cap 600 Mg PO BID Zantac (Ranitidine HCl) 150 Mg Tab 150 Mg PO BID Metformin (Metformin HCl) 500 Mg Tab 1,000 Mg PO BIDPC With meals Cozaar (Losartan Potassium) 100 Mg Tab 100 Mg PO DAILY Vitamin D3 (Cholecalciferol) 1,000 Unit Tab 2,000 Units PO DAILY Atenolol 100 Mg Tab 100 Mg PO DAILY Amlodipine (Amlodipine Besylate) 5 Mg Tab 5 Mg PO BID Review of Systems Except as stated in HPI: all other systems reviewed are Neg General / Constitutional: No: Fever Eyes: No: Visual changes HENT: No: Headaches Cardiovascular: No: Chest Pain or Discomfort Respiratory: No: Shortness of Breath Gastrointestinal: Positive: Abdominal Pain Genitourinary: No: Dysuria Musculoskeletal: No: Pain Skin: No Rash Neurologic: No: Weakness Psychiatric: No: Depression Endocrine: No: Polydipsia Hematologic/Lymphatic: No: Easy Bruising Physical Exam Narrative GENERAL: SKIN: Warm and dry. HEAD: Atraumatic. Normocephalic. EYES: Pupils equal and round. No scleral icterus. No injection or drainage. ENT: No nasal bleeding or discharge. Mucous membranes pink and moist. NECK: Trachea midline. No JVD. CARDIOVASCULAR: Regular rate and rhythm. RESPIRATORY: No accessory muscle use. Clear to auscultation. Breath sounds equal bilaterally. GASTROINTESTINAL: Abdomen soft, non-tender, nondistended. MUSCULOSKELETAL: Extremities without clubbing, cyanosis, or edema. No obvious deformities. NEUROLOGICAL: Awake and alert. No obvious cranial nerve deficits. Motor grossly within normal limits. Five out of 5 muscle strength in the arms and legs. Normal speech. PSYCHIATRIC: Appropriate mood and affect; insight and judgment normal. Data Data Last Documented VS Vital Signs Date Time Temp Pulse Resp B/P (MAP) Pulse Ox O2 Delivery O2 Flow Rate FiO2 04/04/17 12:08 18 98 Room Air 04/04/17 11:20 98.7 84 Orders Orders Electrocardiogram (04/04/17 11:40) Complete Blood Count With Diff (04/04/17 11:40) Comprehensive Metabolic Panel (04/04/17 11:40) Ckmb (Isoenzyme) Profile (04/04/17 11:40) Troponin I (04/04/17 11:40) Lipase (04/04/17 11:40) Iv Access Insert/Monitor (04/04/17 11:40) Ecg Monitoring (04/04/17 11:40) Oximetry (04/04/17 11:40) Cta Thor Abd Aorta W Iv C W3d (04/04/17 ) Iohexol 350 Inj (Omnipaque 350 Inj) (04/04/17 11:19) Labs Laboratory Tests Test 04/04/17 11:50 04/04/17 13:10 White Blood Count 9.3 TH/MM3 Red Blood Count 4.17 MIL/MM3 Hemoglobin 13.2 GM/DL Hematocrit 38.3 % Mean Corpuscular Volume 91.7 FL Mean Corpuscular Hemoglobin 31.7 PG Mean Corpuscular Hemoglobin Concent 34.6 % Red Cell Distribution Width 16.8 % Platelet Count 128 TH/MM3 Mean Platelet Volume 10.5 FL Neutrophils (%) (Auto) 55.1 % Lymphocytes (%) (Auto) 35.3 % Monocytes (%) (Auto) 6.6 % Eosinophils (%) (Auto) 1.7 % Basophils (%) (Auto) 1.3 % Neutrophils # (Auto) 5.1 TH/MM3 Lymphocytes # (Auto) 3.3 TH/MM3 Monocytes # (Auto) 0.6 TH/MM3 Eosinophils # (Auto) 0.2 TH/MM3 Basophils # (Auto) 0.1 TH/MM3 CBC Comment DIFF FINAL Differential Comment Blood Urea Nitrogen 19 MG/DL Creatinine 0.89 MG/DL Random Glucose 136 MG/DL Total Protein 8.0 GM/DL Albumin 3.0 GM/DL Calcium Level 8.8 MG/DL Alkaline Phosphatase 130 U/L Aspartate Amino Transf (AST/SGOT) 33 U/L Alanine Aminotransferase (ALT/SGPT) 31 U/L Total Bilirubin 0.7 MG/DL Sodium Level 137 MEQ/L Potassium Level 3.8 MEQ/L Chloride Level 102 MEQ/L Carbon Dioxide Level 27.8 MEQ/L Anion Gap 7 MEQ/L Estimat Glomerular Filtration Rate 66 ML/MIN Total Creatine Kinase 51 U/L Troponin I 0.08 NG/ML Lipase 181 U/L MDM Medical Decision Making Medical Screen Exam Complete: Yes Emergency Medical Condition: Yes Medical Record Reviewed: Yes Differential Diagnosis PANCREATITIS V AAA V AORTIC DISSECTION V PE V PNA V PLEURISY Narrative Course NO ACTIVE LUBRICATING ENGINEER THAT FOLLOWS PATIENT. CT NEG FOR PE/AAA/OR DISSECTION. HOWEVER, TROPONIN .08 PRESENT TODAY Diagnosis Primary Impression: Elevated troponin Admitting Information Admitting Physician Requests: Observation John Collier MD Apr 04, 2017 11:50
[2017-04-04] MEDS: METFORMIN HOLD POST IV CONTRAST SCH (12:00)
[2017-04-04 12:06] LABS: AUTOMATED NEUTROPHIL # 5.1 TH/MM3 (1.8-7.7); BASOPHIL # 0.1 TH/MM3 (0-0.2); BASOPHIL % 1.3 % (0.0-2.0); EOSINOPHIL # 0.2 TH/MM3 (0-0.4); EOSINOPHIL % 1.7 % (0.0-4.0); HEMATOCRIT 38.3 % (35.0-46.0); HEMOGLOBIN 13.2 GM/DL (11.6-15.3); LYMPH % 35.3 % (9.0-44.0); LYMPHOCYTE # 3.3 TH/MM3 (1.0-4.8); MEAN CELL VOLUME 91.7 FL (80.0-100.0); MEAN CORPUSCULAR HEMOGLOBIN 31.7 PG (27.0-34.0); MEAN CORPUSCULAR HGB CONC 34.6 % (32.0-36.0); MEAN PLATELET VOLUME 10.5 FL (7.0-11.0); MONO % 6.6 % (0.0-8.0); MONOCYTE # 0.6 TH/MM3 (0-0.9); NEUT % 55.1 % (16.0-70.0); PLATELET COUNT 128 TH/MM3 (150-450); RED BLOOD COUNT 4.17 MIL/MM3 (4.00-5.30); RED CELL DISTRIBUTION WIDTH 16.8 % (11.6-17.2); WHITE BLOOD COUNT 9.3 TH/MM3 (4.0-11.0)
[2017-04-04 12:08] VITALS: RESP 18; O2SAT 98
[2017-04-04 13:42] LABS: AST (GOT) 33 U/L (15-37); BICARBONATE 27.8 MEQ/L (21.0-32.0); BLOOD UREA NITROGEN 19 MG/DL (7-18); CALCIUM 8.8 MG/DL (8.5-10.1); CHLORIDE 102 MEQ/L (98-107); CREATININE 0.89 MG/DL (0.50-1.00); GLOMERULAR FILTRATION RATE 66 ML/MIN (>89); GLUCOSE,RANDOM 136 MG/DL (74-106); LIPASE 181 U/L (73-393); SODIUM (NA) 137 MEQ/L (136-145)
--- NOTE | 2017-04-04 13:46 | RADRPT ---
EXAM DATE/TIME: 04/04/2017 12:43 [facility] COMPARISON: No previous studies available for comparison. INDICATIONS : Patient complains of epigastric and left shoulder pain, evaluate for aortic dissection. IV CONTRAST: 100 cc Omnipaque 350 (iohexol) IV RADIATION DOSE: 16.99 CTDIvol (mGy) MEDICAL HISTORY : Cardiovascular disease. Hypertension. Diabetes mellitus type 1.cirrhosis SURGICAL HISTORY : Cholecystectomy. ENCOUNTER: Initial ACUITY: 1 day PAIN SCALE: 5/10 LOCATION: chest TECHNIQUE: Volumetric scanning was performed using a multi-row detector CT scanner. The data was post processed with a variety of visualization algorithms including full volume maximum intensity projection, multi -planar sliding thin slab reformation, curved planar reformation, and surface rendering techniques. Using automated exposure control and adjustment of the mA and/or kV according to patient size, radiat ion dose was kept as low as reasonably achievable to obtain optimal diagnostic quality images. DICOM format image data is available electronically for review and comparison. FINDINGS: LUNGS: There is no consolidation or pneumothorax. No concerning pulmonary nodule is visualized. No pleural fluid is present. MEDIASTINUM: No abnormally enlarged lymph nodes by CT criteria. No axillary or hilar abnormalities are identified. ABDOMEN: The liver has a diffusely nodular surface concerning for possible cirrhosis. The spleen is enlarged m easuring 15.6 cm in length. The patient is status post cholecystectomy. The pancreas demonstrate no a bnormality. The adrenal glands are normal. The kidneys demonstrate no evidence of solid renal mass or hydronephrosis. No free fluid or abdominal masses are identified. No para-aortic adenopathy is seen. There is a minimal umbilical hernia containing mesenteric fat. PELVIS: No evidence of free fluid or pelvic mass. No abnormally enlarged inguinal or retroperitoneal lymph no jessy are present. The bladder is unremarkable. THORACIC AORTA: There is minimal calcification seen in the aortic arch. The right brachiocephalic and left common car otid artery arise from a common trunk. This normal variant. There is mild calcification at the origin of the great vessels. A significant area of stenosis is not seen. ABDOMINAL AORTA: The aorta is normal in caliber without aneurysm or dissection. Scattered atherosclerotic calcificati ons are seen. The renal arteries are patent bilaterally. The proximal celiac and superior mesenteric arteries are patent and normal in diameter. PELVIC VESSELS: The internal iliac and external iliac vessels are patent without aneurysm or stenosis. There are scat tered atherosclerotic calcifications present. CONCLUSION: 1. Atherosclerotic calcification seen throughout without significant stenosis seen. 2. Diffusely nodular liver surface concerning for cirrhosis. There is nonspecific splenomegaly. This can be seen with portal hypertension. Harsh Crain MD on April 04, 2017 at 13:38 Board Certified Radiologist. This report was verified electronically.
[2017-04-04 13:47] LABS: ALKALINE PHOSPHATASE 130 U/L (45-117); ALT (GPT) 31 U/L (10-53); TOTAL BILIRUBIN ADULT 0.7 MG/DL (0.2-1.0); TROPONIN I 0.08 NG/ML (0.02-0.05)
[2017-04-04] MEDS ORDERED: ASPIRIN 81 MG CHEW TAB PO ONE (15:15)
[2017-04-04] MEDS ORDERED: SODIUM CHLORIDE 0.9% FLUSH 10 ML FLUSH IV FLUSH PRN (15:15)
[2017-04-04] MEDS ORDERED: NALOXONE HCL 0.4 MG/ML AMP IV PUSH PRN (15:15)
[2017-04-04] MEDS ORDERED: NITROGLYCERIN 2% OINT 1 GM PACKET TOP ONE (15:15)
[2017-04-04 15:32] VITALS: BP 143/70; PULSE 76; RESP 18; O2SAT 98
--- NOTE | 2017-04-04 16:13 | HHI.HP ---
HPI Service [facility] Hospitalists Primary Care Physician Obie Squires MD Admission Diagnosis ATYPICAL NONSTEMI Diagnoses: Chief Complaint: Chest pain Travel History International Travel<30 Days: No Contact w/Intl Traveler <30 Da: No Traveled to Known Affected Are: No History of Present Illness Written by Renetta Boo, acting as scribe for Dr. Blevins on 04/04/17 at 15:59. This is a 56yo with a past medical history of HTN, primary biliary cirrhosis, DM type II, hypertension, COPD with ongoing tobaccoism, gastritis s/ p EGD in February and dyslipidemia who presents to [facility] ED with complaints of chest pain. She reports sensation of bloating and belching for the past week with epigastric pain. Last night, she developed a pain in the left shoulder blade area that she describes as a "gas bubble". She denies any associated nausea, vomiting, dyspnea, palpitations, no heavy sensation, no numbness/tingling, dizziness or diaphoresis. She denies any neck or left arm pain. She denies any aggravation with movement. She took an Ibuprofen around 4am this morning with some relief. She was admitted in December of this year with NSTEMI and reports her symptoms were "exactly the same". She had a negative stress test at that time. She followed up with Dr. Dickinson as outpatient following discharge and was told to follow up in one year and he recommended a sleep study to evaluate for possible EMMA which patient has not done. She reports intermittent bilateral lower extremity edema. At present, she reports persistent left shoulder blade pain aggravated with belching. She denies any hematuria, dysuria, hematochezia or melena. She reports chronic loose stools that she attributes to Metformin use. Review of Systems Except as stated in HPI: all other systems reviewed are Neg Past Family Social History Past Medical History Primary biliary cirrhosis Gastritis s/p EGD in February GERD Liver nodule, followed by Dr. Serrato COPD/Asthma DM, type II HTN Dyslipidemia Suspected EMMA Past Surgical History EGD 02/18 revealing esophagitis and hiatal hernia Cholecystectomy 1992 Liver biopsy x 2 C section x 2 Reported Medications Lasix (Furosemide) 20 Mg Tab 20 Mg PO DAILY Spironolactone 25 Mg Tab 25 Mg PO BIDPC Ursodiol 300 Mg Cap 600 Mg PO BID Zantac (Ranitidine HCl) 150 Mg Tab 150 Mg PO BID Metformin (Metformin HCl) 500 Mg Tab 1,000 Mg PO BIDPC With meals Cozaar (Losartan Potassium) 100 Mg Tab 100 Mg PO DAILY Vitamin D3 (Cholecalciferol) 1,000 Unit Tab 2,000 Units PO DAILY Atenolol 100 Mg Tab 100 Mg PO DAILY Amlodipine (Amlodipine Besylate) 5 Mg Tab 5 Mg PO BID Allergies: Coded Allergies: cyclobenzaprine (Unverified Allergy, Severe, Restlessness, 04/04/17) RESTLESS LEG lisinopril (Unverified Allergy, Severe, Rash, 04/04/17) Active Ordered Medications Current Medications Medications (Trade) Dose Ordered Sig/Migue Route Start Time Stop Time Status Last Admin (NS Flush) 2 ml UNSCH PRN IV FLUSH 04/04/17 15:15 (NS Flush) 2 ml BID IV FLUSH 04/04/17 21:00 (Narcan Inj) 0.4 mg UNSCH PRN IV PUSH 04/04/17 15:15 Family History Father, CAD s/p CABG x 4, DM type II Mother, cervical cancer, untreated, in her late 40s Brother, CAD s/p cardiac stents Brother, CAD s/p CABG Social History Patient reports tobacco use of 10 cigarettes per day. She started smoking at age 17. She reports rare alcohol use. She denies any illicit drug use. Physical Exam Vital Signs Vital Signs Date Time Temp Pulse Resp B/P (MAP) Pulse Ox O2 Delivery O2 Flow Rate FiO2 04/04/17 15:32 76 18 143/70 (94) 98 Room Air 04/04/17 12:08 18 98 Room Air 04/04/17 11:20 98.7 84 20 139/66 (90) 99 Room Air Physical Exam GENERAL: This is a well-nourished, well-developed obese female patient , in no apparent distress. Awake and alert. SKIN: No rashes, ecchymoses or lesions. Cool and dry. HEAD: Atraumatic. Normocephalic. No temporal or scalp tenderness. EYES: Pupils equal round and reactive. Extraocular motions intact. No scleral icterus. No injection or drainage. ENT: Nose without bleeding or purulent drainage. Throat without erythema, tonsillar hypertrophy or exudate. Uvula midline. Airway patent. NECK: Trachea midline. No lymphadenopathy. Supple, nontender, no meningeal signs. CARDIOVASCULAR: Regular rate and rhythm without murmurs, gallops, or rubs. RESPIRATORY: Clear to auscultation. Breath sounds equal bilaterally. No wheezes , rales, or rhonchi. GASTROINTESTINAL: Abdomen soft, non-tender, nondistended. No hepato-splenomegaly , or palpable masses. No guarding. MUSCULOSKELETAL: Extremities without clubbing, cyanosis, or edema. No joint tenderness, effusion, or edema noted. No calf tenderness. NEUROLOGICAL: Awake and alert. Motor and sensory grossly within normal limits. Five out of 5 muscle strength in all muscle groups. No focal neurologic findings appreciated. Normal speech. Laboratory Laboratory Tests Test 04/04/17 11:50 04/04/17 13:10 White Blood Count 9.3 Red Blood Count 4.17 Hemoglobin 13.2 Hematocrit 38.3 Mean Corpuscular Volume 91.7 Mean Corpuscular Hemoglobin 31.7 Mean Corpuscular Hemoglobin Concent 34.6 Red Cell Distribution Width 16.8 Platelet Count 128 Mean Platelet Volume 10.5 Neutrophils (%) (Auto) 55.1 Lymphocytes (%) (Auto) 35.3 Monocytes (%) (Auto) 6.6 Eosinophils (%) (Auto) 1.7 Basophils (%) (Auto) 1.3 Neutrophils # (Auto) 5.1 Lymphocytes # (Auto) 3.3 Monocytes # (Auto) 0.6 Eosinophils # (Auto) 0.2 Basophils # (Auto) 0.1 CBC Comment DIFF FINAL Differential Comment Blood Urea Nitrogen 19 Creatinine 0.89 Random Glucose 136 Total Protein 8.0 Albumin 3.0 Calcium Level 8.8 Alkaline Phosphatase 130 Aspartate Amino Transf (AST/SGOT) 33 Alanine Aminotransferase (ALT/SGPT) 31 Total Bilirubin 0.7 Sodium Level 137 Potassium Level 3.8 Chloride Level 102 Carbon Dioxide Level 27.8 Anion Gap 7 Estimat Glomerular Filtration Rate 66 Total Creatine Kinase 51 Troponin I 0.08 Lipase 181 Result Diagram: 04/04/17 1150 04/04/17 1310 Imaging Last Impressions Aorta CTA 04/04/17 0000 Signed Impressions: Service Date/Time: Tuesday, April 04, 2017 12:43 - CONCLUSION: 1. Atherosclerotic calcification seen throughout without significant stenosis seen. 2. Diffusely nodular liver surface concerning for cirrhosis. There is nonspecific splenomegaly. This can be seen with portal hypertension. MD Jennifer Lemus VTE Risk Assessment Capadam VTE Risk Assessment: No/Low Risk (score <= 1) Caprini Risk Assessment Model Point Value = 1 Point Value = 2 Point Value = 3 Point Value = 5 Age 41-60 Minor surgery BMI > 25 kg/m2 Swollen legs Varicose veins or History of unexplained or recurrent spontaneous Oral contraceptives or hormone replacement Sepsis (< 1 month) Serious lung disease, including pneumonia (< 1 month) Abnormal pulmonary function Acute myocardial infarction Congestive heart failure (< 1 month) History of inflammatory bowel disease Medical patient at bed rest Age 61-74 Arthroscopic surgery Major open surgery (> 45 min) Laparoscopic surgery (> 45 min) Malignancy Confined to bed (> 72 hours) Immobilizing plaster cast Central venous access Age >= 75 History of VTE Family history of VTE Factor V Leiden Prothrombin [id number] Lupus anticoagulant Anticardiolipin antibodies Elevated serum homocysteine Heparin-induced thrombocytopenia Other congenital or acquired thrombophilia Stroke (< 1 month) Elective arthroplasty Hip, pelvis, or leg fracture Acute spinal cord injury (< 1 month) Prophylaxis Regimen Total Risk Factor Score Risk Level Prophylaxis Regimen 0-1 Low Early ambulation 2 Moderate Order ONE of the following: *Sequential Compression Device (SCD) *Heparin 5000 units SQ BID 3-4 Higher Order ONE of the following medications: *Heparin 5000 units SQ TID *Enoxaparin/Lovenox 40 mg SQ daily (WT < 150 kg, CrCl > 30 mL/min) *Enoxaparin/Lovenox 30 mg SQ daily (WT < 150 kg, CrCl > 10-29 mL/min) *Enoxaparin/Lovenox 30 mg SQ BID (WT < 150 kg, CrCl > 30 mL/min) AND/OR *Sequential Compression Device (SCD) 5 or more Highest Order ONE of the following medications: *Heparin 5000 units SQ TID (Preferred with Epidurals) *Enoxaparin/Lovenox 40 mg SQ daily (WT < 150 kg, CrCl > 30 mL/min) *Enoxaparin/Lovenox 30 mg SQ daily (WT < 150 kg, CrCl > 10-29 mL/min) *Enoxaparin/Lovenox 30 mg SQ BID (WT < 150 kg, CrCl > 30 mL/min) AND *Sequential Compression Device (SCD) Assessment and Plan Assessment and Plan 56yo with a past medical history of HTN, primary biliary cirrhosis, DM type II, COPD with ongoing tobaccoism, gastritis s/p EGD in February and dyslipidemia who presents to [facility] ED with complaints of chest pain. Chest pain, atypical, r/o ACS Possible GI etiology - Aorta CTA reveals atherosclerotic calcification seen throughout without significant stenosis seen and diffusely nodular liver surface concerning for cirrhosis. There is nonspecific splenomegaly. This can be seen with portal hypertension, images personally reviewed - initial troponin elevated at 0.08. Continue to trend cardiac enzymes and EKGs - Consult Dr. Dickinson who is known to the patient - obtain echocardiogram - Obtain fasting lipid panel and TSH level - continuous cardiac monitoring - Nitro and/or Morphine prn chest pain - ASA and BB daily - NPO after MN - supplemental oxygen to maintain O2 sats above 92% Gastritis/reflux - Status post EGD February of this year - PPI HTN - Resume home dose of amlodipine 5 mg by mouth twice a day, losartan 100 mg by mouth daily and atenolol 100 mg by mouth daily - Continue to monitor blood pressure and adjust treatment accordingly Diabetes mellitus, type II - Hold patient's home dose of metformin - Accu-Cheks and insulin sliding scale - Obtain hemoglobin A1c level Primary biliary cirrhosis - Patient followed by Dr. Serrato as outpatient, will consult at patient's request. - Resume home dose of Ursodiol, Lasix and spironolactone. Monitor electrolytes. COPD with ongoing tobaccoism, not in acute exacerbation - Discussed with patient importance of tobacco cessation - DuoNeb's as needed Suspected EMMA - Lengthy discussion with patient regarding importance of completing sleep study as outpatient Obesity - BMI 50 - discussed gastric weight loss surgery - recommended followup as outpatient DVT prophylaxis - bilateral SCD/MARYANN hose This note was transcribed by scribe [Renetta Boo]. I, Dr. Raj Blevins personally performed the history, physical exam, and medical decision making; and confirmed the accuracy of the information in the transcribed note. Authenticated by Dr. Raj Blevins on 04/04/17 at 15:59. Discussed Condition With ED physician, patient Renetta Boo Apr 04, 2017 16:13 Raj Blevins MD Apr 04, 2017 20:35
[2017-04-04] MEDS ORDERED: PANTOPRAZOLE SOD 40 MG DELAYED RELEASE TAB PO ONE (17:00)
[2017-04-04] MEDS: INSULIN ASPART SUPPLEMENTAL SCALE SQ SCH ×2 (17:00→21:00)
[2017-04-04] MEDS ORDERED: DEXTROSE 50% IN WATER 50 ML VIAL(D50) IV PUSH PRN (17:00)
[2017-04-04] MEDS ORDERED: RESP: ALBUTEROL 2.5 MG/IPRATROPIUM 0.5 MG NEB (PRN) NEB (17:00)
[2017-04-04] MEDS ORDERED: GLUCAGON 1 MG/ML VIAL OTHER PRN (17:00)
[2017-04-04] MEDS ORDERED: MAGNESIUM HYDROXIDE SUSP 30 ML CUP PO PRN (17:15)
[2017-04-04] MEDS ORDERED: MORPHINE SULFATE 2 MG/ML INJ IV PUSH PRN (17:15)
[2017-04-04] MEDS ORDERED: ACETAMINOPHEN 325 MG TAB PO PRN (17:15)
[2017-04-04] MEDS ORDERED: SENNOSIDES 8.6 MG TAB PO PRN (17:15)
[2017-04-04] MEDS ORDERED: BISACODYL 10 MG SUPP RECTAL PRN (17:15)
[2017-04-04] MEDS ORDERED: LACTULOSE SYRUP 20 GM/30 ML CUP PO PRN (17:15)
[2017-04-04] MEDS ORDERED: ONDANSETRON HCL 4 MG/2 ML VIAL IVP PRN (17:15)
[2017-04-04] MEDS ORDERED: NITROGLYCERIN 0.4 MG SL 25 TABS/BTL SL PRN (17:15)
[2017-04-04 17:43] VITALS: BP 126/60; PULSE 66; RESP 16; TEMP 98.1; O2SAT 97
[2017-04-04] MEDS: SPIRONOLACTONE 25 MG TAB PO SCH (18:00)
[2017-04-04] MEDS ORDERED: ALUMINUM/MAGNESIUM/SIMETH 30 ML CUP PO ONE (18:15)
[2017-04-04 19:45] LABS: MAGNESIUM 1.9 MG/DL (1.5-2.5)
[2017-04-04 19:54] LABS: TROPONIN I 0.07 NG/ML (0.02-0.05)
[2017-04-04 19:58] VITALS: BP 130/61; PULSE 72; RESP 18; TEMP 97.7; O2SAT 97
[2017-04-04] MEDS: DOCUSATE SODIUM 50 MG/SENNA 8.6 MG TAB PO SCH (21:00)
[2017-04-04] MEDS: SODIUM CHLORIDE 0.9% FLUSH 10 ML FLUSH IV FLUSH SCH (22:05)
[2017-04-04] MEDS: URSODIOL 300 MG CAP PO SCH (22:06)
[2017-04-04] MEDS: amLODIPine BESYLATE 5 MG TAB PO SCH (22:06)
[2017-04-04 22:54] VITALS: BP 128/84; PULSE 77; RESP 18; TEMP 98.5; O2SAT 91
[2017-04-05] VITALS (8 sets, daily range): BP systolic 99–122; BP diastolic 55–69; PULSE 47–70; RESP 18–22; TEMP 97.3–98.7; O2SAT 92–98
[2017-04-05 00:57] LABS: TROPONIN I 0.07 NG/ML (0.02-0.05)
[2017-04-05] MEDS ORDERED: POTA10TA15 PO (08:21)
[2017-04-05] MEDS ORDERED: FUROSEMIDE 20 MG TAB PO SCH (09:00)
[2017-04-05] MEDS ORDERED: ATENOLOL 100 MG TAB PO SCH (09:00)
[2017-04-05] MEDS ORDERED: CHOLECALCIFEROL (VIT D3) 1000 UNIT TAB PO SCH (09:00)
[2017-04-05] MEDS ORDERED: PANTOPRAZOLE SOD 40 MG DELAYED RELEASE TAB PO SCH (09:00)
[2017-04-05] MEDS ORDERED: ASPIRIN EC 81 MG TABEC PO SCH (09:00)
[2017-04-05] MEDS ORDERED: LOSARTAN 50 MG TAB PO SCH (09:00)
--- NOTE | 2017-04-05 09:09 | MB ---
cc: PITO MARKS MD, GLENN H. M.D. DATE OF CONSULTATION 04/05/2017 REASON FOR CONSULTATION Chest pain, slightly abnormal troponin levels. HISTORY OF PRESENT ILLNESS The patient is a 56-year-old white female, followed in our office by Dr. Pito Marks, with a history of primary biliary cirrhosis, hypertension, diabetes, hyperlipidemia, gastritis, COPD, who presented to the hospital with a five-day history of constant bilateral upper abdominal discomfort. She became concerned as she also had a few episodes of left subscapular pain. The left subscapular pain, however, would occur most notably when burping. The upper abdominal discomfort has since resolved. She denies mauri chest pain, pleurisy, dizziness, syncope, near-syncope, palpitations, change in chronic intermittent mild ankle edema, paroxysmal nocturnal dyspnea, orthopnea, fevers. The patient states she had similar symptoms three months ago at which time a nuclear stress test was normal. PAST MEDICAL HISTORY 1. Primary biliary cirrhosis. 2. Hyperlipidemia. 3. Hypertension. 4. Diabetes. 5. COPD. 6. Gastritis; demonstrated by fairly recent upper endoscopy. PAST SURGICAL HISTORY 1. Cholecystectomy. 2. section. MEDICATIONS Her cardiac medications at home: 1. Amlodipine 5 mg b.i.d. 2. Tenormin 100 mg q. daily. 3. Cozaar 100 mg q. daily. 4. Spironolactone 25 mg b.i.d. 5. Furosemide 20 mg q. daily. ALLERGIES 1. LISINOPRIL. 2. CYCLOBENZAPRINE. FAMILY HISTORY There is no significant family history of early myocardial infarction. Her father did undergo bypass surgery in his late 60s. Her older brother did undergo coronary stenting about a year ago. SOCIAL HISTORY The patient smokes about a half pack of cigarettes per day. She denies alcohol abuse. REVIEW OF SYSTEMS As in the history of present illness, otherwise negative or noncontributory. She also denies headache, melena, dyspepsia, bright red blood per rectum, cough, fevers, wheezing. PHYSICAL EXAMINATION VITAL SIGNS: On physical examination her blood pressure is 120/69 with a pulse of 67, respirations 22. GENERAL: In general she is a well-developed, well-nourished white female in no acute distress. HEENT/NECK: Jugular venous pressure is normal. Carotid pulses are 2+ bilaterally and without bruits. CHEST: Examination of the chest reveals clear lung bynum. CARDIAC: On cardiac examination she has a regular rhythm and rate without S3, S4 or murmur. ABDOMEN: On abdominal examination she has a soft, obese, nontender abdomen. Bowel sounds are present. There is no definite hepatosplenomegaly. Examination of the extremities reveals no clubbing, cyanosis or edema. EKG EKG shows normal sinus rhythm, normal EKG. LABORATORY Laboratory data includes WBC 9.3, hemoglobin 13.2, platelets 128, potassium 3.8, BUN 19, creatinine 0.89, troponin 0.08. IMPRESSION Exceedingly atypical symptoms for myocardial ischemia or infarction in this 56-year-old white female with a history of primary biliary cirrhosis, diabetes, hypertension, hyperlipidemia, tobacco abuse, COPD. Despite constant upper abdominal discomfort for the past five days, CK levels are negative for a myocardial infarction. Her troponin levels are only minimally elevated and without change compared to three months ago at which time a nuclear stress test was normal. Her nuclear stress test images have been reviewed. I would agree with the interpretation. I do not see any significant myocardial perfusion defects. On the other hand she does have a number of risk factors for coronary disease, and her nuclear stress test imaging may have been normal due to "balanced ischemia." I discussed at length with the patient the potential diagnostic/therapeutic options at this point including cardiac catheterization and medical therapy. At this time she prefers noninvasive evaluation/therapy. RECOMMENDATIONS Check a CT angiogram of her coronaries; even if coronary disease is demonstrated would recommend medical therapy at this point given the extremely atypical nature of her symptoms, normal EKG, normal CK levels. MD JACLYN Landry/PRATEEK /8:16 AM 8:45 AM CAMILA
--- NOTE | 2017-04-05 09:32 | PD.CONS ---
HPI History of Present Illness This is a 56 year old female with hx primary biliary cirrhosis, DM, COPD who presented with upper abd pain, bloating, belching. ONset 1 week ago and the abd pain improved however she still feels it when she belches. Yesterday she developed left shoulder pain. Denies n/v, change in bowel habits, blood in stool. She has had cholecystectomy. She has had this 3 months ago and was found to have elevated troponins. She has been evaluated by cardiology and CT angio is pending; pt wished for non invasive mgmt at this time. She had EGD with Dr Serrato 02/07/17 with findings esophagitis, gastritis, and benign pathology. Last colonoscopy [address] Serrato and polyps were found as well as hemorrhoids. She had US abd at [facility] 03/23/17 weeks ago and liver nodule was found, was told to repeat US in 6months. (Mirian Poe) PFSH Past Medical History Primary biliary cirrhosis Gastritis s/p EGD in February GERD Liver nodule, followed by Dr. Serrato COPD/Asthma DM, type II HTN Dyslipidemia Suspected EMMA Past Surgical History EGD 02/18 revealing esophagitis and hiatal hernia Cholecystectomy 1992 Liver biopsy x 2 C section x 2 (Mirian Poe) Coded Allergies: cyclobenzaprine (Unverified Allergy, Severe, Restlessness, 04/04/17) RESTLESS LEG lisinopril (Unverified Allergy, Severe, Rash, 04/04/17) Family History Father, CAD s/p CABG x 4, DM type II Mother, cervical cancer, untreated, in her late 40s Brother, CAD s/p cardiac stents Brother, CAD s/p CABG Social History Patient reports tobacco use of 10 cigarettes per day. She started smoking at age 17. She reports rare alcohol use. She denies any illicit drug use. (Mirian Poe) Review of Systems Gastrointestinal: COMPLAINS OF: Abdominal pain, DENIES: Black stools, Bloody stools, Constipation, Diarrhea, Nausea, Vomiting Except as stated in HPI: all other systems reviewed are Neg (Mirian Poe) GI Exam Vitals I&O Vital Signs Date Time Temp Pulse Resp B/P (MAP) Pulse Ox O2 Delivery O2 Flow Rate FiO2 04/05/17 07:27 98.5 67 22 120/69 (86) 92 04/05/17 04:52 98.7 70 18 111/61 (78) 93 04/04/17 22:54 98.5 77 18 128/84 (99) 91 04/04/17 19:58 97.7 72 18 130/61 (84) 97 04/04/17 17:43 98.1 66 16 126/60 (82) 97 04/04/17 15:32 76 18 143/70 (94) 98 Room Air 04/04/17 12:08 18 98 Room Air 04/04/17 11:20 98.7 84 20 139/66 (90) 99 Room Air Laboratory Test 04/04/17 11:50 04/04/17 13:10 04/05/17 00:32 White Blood Count 9.3 TH/MM3 Red Blood Count 4.17 MIL/MM3 Hemoglobin 13.2 GM/DL Hematocrit 38.3 % Mean Corpuscular Volume 91.7 FL Mean Corpuscular Hemoglobin 31.7 PG Mean Corpuscular Hemoglobin Concent 34.6 % Red Cell Distribution Width 16.8 % Platelet Count 128 TH/MM3 Mean Platelet Volume 10.5 FL Neutrophils (%) (Auto) 55.1 % Lymphocytes (%) (Auto) 35.3 % Monocytes (%) (Auto) 6.6 % Eosinophils (%) (Auto) 1.7 % Basophils (%) (Auto) 1.3 % Neutrophils # (Auto) 5.1 TH/MM3 Lymphocytes # (Auto) 3.3 TH/MM3 Monocytes # (Auto) 0.6 TH/MM3 Eosinophils # (Auto) 0.2 TH/MM3 Basophils # (Auto) 0.1 TH/MM3 CBC Comment DIFF FINAL Differential Comment Magnesium Level 1.9 MG/DL Total Creatine Kinase 55 U/L 51 U/L 41 U/L Troponin I 0.07 NG/ML 0.08 NG/ML 0.07 NG/ML Thyroid Stimulating Hormone 3rd Gen 1.440 uIU/ML Blood Urea Nitrogen 19 MG/DL Creatinine 0.89 MG/DL Random Glucose 136 MG/DL Total Protein 8.0 GM/DL Albumin 3.0 GM/DL Calcium Level 8.8 MG/DL Alkaline Phosphatase 130 U/L Aspartate Amino Transf (AST/SGOT) 33 U/L Alanine Aminotransferase (ALT/SGPT) 31 U/L Total Bilirubin 0.7 MG/DL Sodium Level 137 MEQ/L Potassium Level 3.8 MEQ/L Chloride Level 102 MEQ/L Carbon Dioxide Level 27.8 MEQ/L Anion Gap 7 MEQ/L Estimat Glomerular Filtration Rate 66 ML/MIN Lipase 181 U/L Physical Examination HEENT: PERRL; normocephalic; atraumatic; no jaundice. CHEST: CTA CARDIAC: Rrr ABDOMEN: Soft, obese, nontender; no hepatosplenomegaly; bowel sounds are present in all four quadrants. EXTREMITIES: No clubbing, cyanosis, or edema. SKIN: Normal; no rash; no jaundice. BREEDER HEN SERVICE TECHNICIAN: No focal deficits; alert and oriented times three. (Mirian Poe) Assessment and Plan Plan ASSESSMENT - atypical chest pain, bloating, belching - was having upper quadrant pain and left shoulder pain onset 1 wk ago, has improved. has pain when she belches. c/ o bloating. previous episode dx with NSTEMI. being evaluated by cardiology, going for CT angio, pt wants noninvasive mgmt for now. recent EGD 02/07/17 found gastritis , esophagitis benign path. Pt has appt to see her GI Dr Serrato this month and wishes to keep appt. and does not want procedures at this time. she is eating. - primary biliary cirrhosis - on ursodiol - elevated troponins - cardiology following PLAN - F/U with Dr Serrato after d/c - await cardiology w/u - ok to d/c from GI standpoint after cardiology eval - GI will sign off. This pt seen by myself and Dr Calvo and this note is written on his behalf (Mirian Poe) Physician Comments Seen and examined with MICHAEL, doing better now. CTA -ve, cardiac pina in progress. Will fu with Dr. Serrato upon dc. Going home today. thank you. (Cheli Roberts MD) Mirian Poe Apr 05, 2017 09:32 Cheli Roberts MD Apr 05, 2017 19:13
[2017-04-05] MEDS: URSODIOL 300 MG CAP PO SCH (09:38)
[2017-04-05] MEDS: amLODIPine BESYLATE 5 MG TAB PO SCH (09:40)
[2017-04-05] MEDS: SPIRONOLACTONE 25 MG TAB PO SCH (09:40)
[2017-04-05] MEDS: SODIUM CHLORIDE 0.9% FLUSH 10 ML FLUSH IV FLUSH SCH (09:41)
[2017-04-05] MEDS: DOCUSATE SODIUM 50 MG/SENNA 8.6 MG TAB PO SCH (09:41)
[2017-04-05] MEDS: INSULIN ASPART SUPPLEMENTAL SCALE SQ SCH ×3 (09:42→17:18)
--- NOTE | 2017-04-05 10:11 | HHI.PR ---
Subjective Remarks Follow up on patient with atypical chest pain. Patient seen and examined. Patient reports persistent left shoulder blade pain with belching. Denies any palpitations, N/V, dizziness, diaphoresis or dyspnea. Patient evaluated by Cardiology and Gastroenterology. Cardiac CTA ordered as patient requesting noninvasive testing. Objective Vitals Vital Signs Date Time Temp Pulse Resp B/P (MAP) Pulse Ox O2 Delivery O2 Flow Rate FiO2 04/05/17 07:27 98.5 67 22 120/69 (86) 92 04/05/17 07:23 93 21 04/05/17 04:52 98.7 70 18 111/61 (78) 93 04/04/17 22:54 98.5 77 18 128/84 (99) 91 04/04/17 19:58 97.7 72 18 130/61 (84) 97 04/04/17 17:43 98.1 66 16 126/60 (82) 97 04/04/17 15:32 76 18 143/70 (94) 98 Room Air 04/04/17 12:08 18 98 Room Air 04/04/17 11:20 98.7 84 20 139/66 (90) 99 Room Air Result Diagram: 04/04/17 1150 04/04/17 1310 Imaging Last Impressions Aorta CTA 04/04/17 0000 Signed Impressions: Service Date/Time: Tuesday, April 04, 2017 12:43 - CONCLUSION: 1. Atherosclerotic calcification seen throughout without significant stenosis seen. 2. Diffusely nodular liver surface concerning for cirrhosis. There is nonspecific splenomegaly. This can be seen with portal hypertension. Harsh Crain MD Objective Remarks GENERAL: This is a well-nourished, well-developed obese female patient , in no apparent distress. Awake and alert. Sitting on side of bed. SKIN: Cool and dry. HEAD: Atraumatic. Normocephalic. EYES: Pupils equal round and reactive. Extraocular motions intact. No scleral icterus. No injection or drainage. ENT: Nose without bleeding or purulent drainage. Airway patent. MMM. NECK: Trachea midline. CARDIOVASCULAR: Regular rate and rhythm without murmurs, gallops, or rubs. RESPIRATORY: Clear to auscultation. Breath sounds equal bilaterally. No wheezes , rales, or rhonchi. GASTROINTESTINAL: Abdomen soft, non-tender, nondistended. No hepato-splenomegaly , or palpable masses. No guarding. MUSCULOSKELETAL: Extremities without clubbing or cyanosis. Trace bilateral ankle edema. No calf tenderness. NEUROLOGICAL: Awake and alert. Motor and sensory grossly within normal limits. Five out of 5 muscle strength in all muscle groups. No focal neurologic findings appreciated. Normal speech. Medications and IVs Current Medications Medications (Trade) Dose Ordered Sig/Migue Route Start Time Stop Time Status Last Admin (NS Flush) 2 ml UNSCH PRN IV FLUSH 04/04/17 15:15 (NS Flush) 2 ml BID IV FLUSH 04/04/17 21:00 04/05/17 09:41 (Narcan Inj) 0.4 mg UNSCH PRN IV PUSH 04/04/17 15:15 (Norvasc) 5 mg BID PO 04/04/17 21:00 04/05/17 09:40 (Tenormin) 100 mg DAILY PO 04/05/17 09:00 04/05/17 09:39 (Vitamin D3) 2,000 units DAILY PO 04/05/17 09:00 04/05/17 09:38 (Lasix) 20 mg DAILY PO 04/05/17 09:00 (Cozaar) 100 mg DAILY PO 04/05/17 09:00 04/05/17 09:40 (Aldactone) 25 mg BIDPC PO 04/04/17 18:00 04/05/17 09:40 (Actigall) 600 mg BID PO 04/04/17 21:00 04/05/17 09:38 (D50w (Vial) Inj) 50 ml UNSCH PRN IV PUSH 04/04/17 17:00 (Glucagon Inj) 1 mg UNSCH PRN OTHER 04/04/17 17:00 (NovoLOG SUPPLEMENTAL SCALE) 1 ACHS SLIDING SCALE SQ 04/04/17 17:00 04/04/17 17:00 (Protonix) 40 mg DAILY PO 04/05/17 09:00 04/05/17 09:40 (Ecotrin Ec) 81 mg DAILY PO 04/05/17 09:00 04/05/17 09:40 (Duoneb Neb) 1 ampule Q4HR NEB PRN NEB 04/04/17 17:00 (Zofran Inj) 4 mg Q6H PRN IVP 04/04/17 17:15 (Tylenol) 650 mg Q6H PRN PO 04/04/17 17:15 (Heather-Colace) 1 tab BID PO 04/04/17 21:00 (Milk Of Magnesia Liq) 30 ml Q12H PRN PO 04/04/17 17:15 (Senokot) 17.2 mg Q12H PRN PO 04/04/17 17:15 (Dulcolax Supp) 10 mg DAILY PRN RECTAL 04/04/17 17:15 (Lactulose Liq) 30 ml DAILY PRN PO 04/04/17 17:15 (Nitrostat Sl) 0.4 mg Q5M PRN SL 04/04/17 17:15 (Morphine Inj) 2 mg Q5M PRN IV PUSH 04/04/17 17:15 Miscellaneous Information HOLD METFORMIN FOR... Q24H .XX 04/04/17 12:00 04/06/17 11:59 A/P Assessment and Plan 56yo with a past medical history of HTN, primary biliary cirrhosis, DM type II, COPD with ongoing tobaccoism, gastritis s/p EGD in February and dyslipidemia who presents to [facility] ED with complaints of chest pain. Chest pain, atypical, r/o ACS Possible GI etiology - Aorta CTA reveals atherosclerotic calcification seen throughout without significant stenosis seen and diffusely nodular liver surface concerning for cirrhosis. There is nonspecific splenomegaly. This can be seen with portal hypertension, images personally reviewed - troponins mildly elevated, stable. EKGs without any ischemic changes noted. - Cardiology following, appreciated assistance. CTA of coronaries ordered revealing scattered nonstenotic plaque involving the proximal coronary arteries as above. - Echocardiogram completed revealing EF 60-65% - TSH level 1.440 - continuous cardiac monitoring - Nitro and/or Morphine prn chest pain - ASA and BB daily - supplemental oxygen to maintain O2 sats above 92% Gastritis/reflux Primary biliary cirrhosis - GI following, appreciate recommendations. Recommend keeping scheduled outpatient appt with Dr. Serrato later this month. - Continue home dose of Ursodiol, Lasix and spironolactone. Monitor electrolytes. - Status post EGD February of this year with findings esophagitis, gastritis , and benign pathology. - PPI HTN - Continue home dose of amlodipine 5 mg by mouth twice a day, losartan 100 mg by mouth daily and atenolol 100 mg by mouth daily - Continue to monitor blood pressure and adjust treatment accordingly Diabetes mellitus, type II - Hold patient's home dose of metformin - Accu-Cheks and insulin sliding scale - Hemoglobin A1c level pending Primary biliary cirrhosis - GI following, appreciate recommendations. Recommend keeping scheduled outpatient appt with Dr. Serrato later this month. - Continue home dose of Ursodiol, Lasix and spironolactone. Monitor electrolytes. COPD with ongoing tobaccoism, not in acute exacerbation - Discussed with patient importance of tobacco cessation - DuoNeb's as needed Suspected EMMA - Lengthy discussion with patient regarding importance of completing sleep study as outpatient Obesity - BMI 50 - discussed gastric weight loss surgery - recommended followup as outpatient Dyslipidemia - Triglyceride 157, cholesterol 213, LDL 138, HDL 43.9 - per ASCVD risk calculator, patient has 10 year risk of 13.3% and lifetime risk of 50% - LFTs within normal limits, begin Lipitor 20 mg daily. Patient will need to follow up with primary care physician for monitoring of liver function test as well as repeat fasting lipid panel in 2-3 months. DVT prophylaxis - bilateral SCD/MARYANN hose Discussed with Dr. Barrera, patient and nursing staff Discharge patient to home Condition on discharge: Improved Heart healthy diabetic Diet as tolerated Ad Adri activity Rx written: Lipitor 20 mg daily, aspirin 81 mg daily, pantoprazole 40 mg daily Follow-up with primary care physician, Dr. Dickinson of cardiology and keep scheduled appointment with Dr. Serrato. Recommend completion of outpatient sleep study to assess for possible obstructive sleep apnea. Strongly advised to stop smoking. Discharge Planning Cleared by cardiology for discharge to home Renetta Boo Apr 05, 2017 10:11
[2017-04-05 11:29] LABS: BASOPHIL % 0.5 % (0.0-2.0); EOSINOPHIL # 0.1 TH/MM3 (0-0.4); HEMATOCRIT 36.2 % (35.0-46.0); HEMOGLOBIN 12.5 GM/DL (11.6-15.3); LYMPH % 38.7 % (9.0-44.0); LYMPHOCYTE # 2.9 TH/MM3 (1.0-4.8); MEAN CELL VOLUME 90.9 FL (80.0-100.0); MEAN CORPUSCULAR HEMOGLOBIN 31.3 PG (27.0-34.0); MEAN CORPUSCULAR HGB CONC 34.4 % (32.0-36.0); MEAN PLATELET VOLUME 10.8 FL (7.0-11.0); MONO % 5.6 % (0.0-8.0); MONOCYTE # 0.4 TH/MM3 (0-0.9); NEUT % 53.2 % (16.0-70.0); PLATELET COUNT 130 TH/MM3 (150-450); RED BLOOD COUNT 3.98 MIL/MM3 (4.00-5.30); RED CELL DISTRIBUTION WIDTH 16.5 % (11.6-17.2); WHITE BLOOD COUNT 7.5 TH/MM3 (4.0-11.0)
[2017-04-05 12:01] LABS: BICARBONATE 26.8 MEQ/L (21.0-32.0); CREATININE 0.77 MG/DL (0.50-1.00)
[2017-04-05 12:04] LABS: CHOLESTEROL/ HDL RATIO 4.85 RATIO; HDL CHOLESTEROL 43.9 MG/DL (40.0-60.0)
[2017-04-05] MEDS: METFORMIN HOLD POST IV CONTRAST SCH (13:04)
[2017-04-05] MEDS ORDERED: ATORVASTATIN 20 MG TAB PO ONE (14:30)
[2017-04-05] MEDS ORDERED: PANT40TA3 PO (14:53)
[2017-04-05] MEDS ORDERED: ECASA81 PO (14:53)
[2017-04-05] MEDS ORDERED: ATOR20TA15 PO (14:53)
--- NOTE | 2017-04-05 14:57 | HHI.DCPOC ---
Discharge Care Plan Diagnosis: (1) Chest pain (2) Dyslipidemia (3) Obesity (4) Diabetes mellitus (5) Tobacco dependence (6) Hypertension (7) Gastritis (8) Reflux esophagitis (9) Elevated troponin Goals to Promote Your Health * To prevent worsening of your condition and complications * To maintain your health at the optimal level Directions to Meet Your Goals Recommend antireflux measures to include avoidance of spicy, citrus, fried, fatty foods, alcohol, tobacco use, caffeine, coffee, peppermint. Recommend not laying flat for 2 hours after meals. Recommend smaller more frequent meals throughout the day. Recommend keeping head of bed elevated. Please stop smoking. Recommend outpatient sleep study to assess for possible obstructive sleep apnea. Take your medications as prescribed Follow your dietary instruction Follow activity as directed Keep your appointments as scheduled Take your immunizations and boosters as scheduled If your symptoms worsen call your PCP, if no PCP go to Urgent Care Center or Emergency Room Smoking is Dangerous to Your Health. Avoid second hand smoke Call the 24-hour hour crisis hotline for domestic abuse at Renetta Boo Apr 05, 2017 14:57
--- NOTE | 2017-04-05 15:36 | ECHRPT ---
Indication: CHEST PAIN CONCLUSIONS Normal left ventricular size and wall thickness. The left ventricular systolic function is normal wi th an estimated ejection fraction in the range of 60-65%. No regional wall motion abnormalities are present. Structurally normal mitral valve. Trace mitral valve regurgitation. Structurally normal tricuspid valve. There is trace tricuspid valve regurgitation. The estimated pulmonary arterial pressure is 30 mmHg. BP: 120 / 69 HR: 67 Rhythm: Sinus MEASUREMENTS (Male / Female) Normal Values Technical Quality:Fair 2D ECHO LVOT Diameter 2.0 cm LV Ejection Fraction MOD 4C 64.7 % LV Cardiac Index MOD 4C 1882.7 cm/minm LV Ejection Fraction 4C AL 66.4 % LV Cardiac Index 4C AL 1997.1 cm/minm M-MODE LV Diastolic Diameter MM 5.7 cm 4.2 - 5.9 / 3.9 - 5.3 cm LV Systolic Diameter MM 3.7 cm LV Ejection Fraction MM Teich 63.8 % LV Cardiac Index MM Teich 2959.5 cm/minm IVS Diastolic Thickness MM 1.4 cm 0.6 - 1.0 / 0.6 - 0.9 cm LVPW Diastolic Thickness MM 1.4 cm 0.6 - 1.0 / 0.6 - 0.9 cm LV Relative Wall Thickness MM 0.5 0.24 - 0.42 / 0.22 - 0.42 LV Mass Index MM 157.6 g/m 49 - 115 / 43 - 95 g/m Aortic Root Diameter MM 2.7 cm LA Systolic Diameter MM 3.6 cm LA Ao Ratio MM 1.3 AV Cusp Separation MM 2.1 cm DOPPLER AV Peak Velocity 159.0 cm/s AV Peak Gradient 10.1 mmHg LVOT Peak Velocity 116.0 cm/s LVOT Peak Gradient 5.4 mmHg AV Area Cont Eq pk 2.3 cm MV Area PHT 3.1 cm Mitral E Point Velocity 88.4 cm/s Mitral A Point Velocity 67.6 cm/s Mitral E to A Ratio 1.3 LV E' Lateral Velocity 9.3 cm/s Mitral E to LV E' Lateral Ratio 9.5 LV E' Septal Velocity 8.0 cm/s Mitral E to LV E' Septal Ratio 11.1 TR Peak Velocity 231.0 cm/s TR Peak Gradient 21.3 mmHg Right Atrial Pressure 10.0 mmHg Pulmonary Artery Systolic Pressu 31.3 mmHg Right Ventricular Systolic Press 31.3 mmHg PV Peak Velocity 114.0 cm/s PV Peak Gradient 5.2 mmHg FINDINGS LEFT VENTRICLE Normal left ventricular size and wall thickness. The left ventricular systolic function is normal wi th an estimated ejection fraction in the range of 60-65%. No regional wall motion abnormalities are present. RIGHT VENTRICLE Normal right ventricular size and systolic function. LEFT ATRIUM The left atrial size is normal. RIGHT ATRIUM The right atrial size is normal. ATRIAL SEPTUM Normal atrial septal thickness without atrial level shunting by limited color doppler interrogation. AORTA The aortic root and proximal ascending aorta are normal in size on limited imaging. MITRAL VALVE Structurally normal mitral valve. Trace mitral valve regurgitation. AORTIC VALVE Trileaflet aortic valve. No aortic valve stenosis or regurgitation. TRICUSPID VALVE Structurally normal tricuspid valve. There is trace tricuspid valve regurgitation. The estimated pulmonary arterial pressure is 30 mmHg. PULMONARY VALVE No pulmonary valve regurgitation or stenosis. VESSELS The inferior vena cava is normal in size. PERICARDIUM No pericardial effusion. Dale Cheung MD (Electronically Signed) Final Date:05 April 2017 15:35
[2017-04-05] MEDS ORDERED: NITROGLYCERIN 0.4 MG SL 25 TABS/BTL SL ONE (15:37)
[2017-04-05 16:10] LABS: HEMOGLOBIN A1C 7.6 % (4.3-6.0)
--- NOTE | 2017-04-05 17:42 | RADRPT ---
EXAM DATE/TIME: 04/05/2017 15:18 [place] COMPARISON: No previous studies available for comparison. INDICATIONS : Left sided chest pain for two days. IV CONTRAST: 95 cc Omnipaque 350 (iohexol) IV RADIATION DOSE: 8.33 CTDIvol (mGy) ; Patient body habitus MEDICAL HISTORY : Hypertension. Chronic obstructive pulmonary disease. diabetes SURGICAL HISTORY : section. Cholecystectomy. ENCOUNTER: Initial ACUITY: 2 days PAIN SCALE: 7/10 LOCATION: Left chest TECHNIQUE: Volumetric scanning was obtained through the heart. Images were acquired on a multislice multiple ro w detector helical scanner timed for acquisition during peak arterial contrast. Images were reconstr ucted using a retrospective gating algorithm including single sector and multi-sector algorithms at m ultiple phases of the cardiac cycle. Images were interpreted using a combination of 2D and 3D visual ization modes including curved planar reformation, thin slab maximum intensity projection and volume rendering. Using automated exposure control and adjustment of the mA and/or kV according to patient size, radiation dose was kept as low as reasonably achievable to obtain optimal diagnostic quality im ages. DICOM format image data is available electronically for review and comparison. FINDINGS: VESSEL ANALYSIS: DOMINANCE: The coronary system is right dominant. LEFT MAIN: There is minimal nonstenotic calcification LAD: There is minimal nonstenotic calcification CIRCUMFLEX: Normal vessel without calcification or stenosis. RCA: There is minimal nonstenotic calcification involving the proximal third OTHER: None. Calcium score is 228, 90 percentile CONCLUSION: 1. Scattered nonstenotic plaque involving the proximal coronary arteries as above. Moises Lin MD on April 05, 2017 at 17:37 Board Certified Radiologist. This report was verified electronically.
--- NOTE | 2017-04-05 17:59 | EKG ---
Date Performed: 04/04/2017 Time Performed: 11:54:10 PTAGE: 56 years EKG: Sinus rhythm WITH OCCASIONAL SUPRAVENTRICULAR PREMATURE COMPLEXES BORDERLINE ECG PREVIOUS TRACING : 12/25/2016 23.39 Compared to prior tracing no significant change DOCTOR: Silas Abebe Interpretating Date/Time 04/05/2017 17:57:31
--- NOTE | 2017-04-05 17:59 | EKG ---
Date Performed: 04/04/2017 Time Performed: 19:53:33 PTAGE: 56 years EKG: Sinus rhythm NONSPECIFIC T-WAVE ABNORMALITY BORDERLINE ECG PREVIOUS TRACING : 04/04/2017 11.54 Compared to prior tracing no significant change DOCTOR: Silas Abebe Interpretating Date/Time 04/05/2017 17:58:13
[2017-04-06] MEDS ORDERED: ATORVASTATIN 20 MG TAB PO SCH (09:00)
== END 2017-04-05 20:21 | disposition home or self-care (01) ==
LOC: NEPE 11:18 → NEDA 15:06 → NEPGCP 17:20
PROVIDERS: ADMIT Internal Medicine; ATTEND Internal Medicine
DX: R07.9 Chest pain, unspecified (principal); I10 Essential (primary) hypertension; I70.0 Atherosclerosis of aorta; E78.5 Hyperlipidemia, unspecified; E11.9 Type 2 diabetes mellitus without complications; J44.9 Chronic obstructive pulmonary disease, unspecified; K21.0 Gastro-esophageal reflux disease with esophagitis; K29.70 Gastritis, unspecified, without bleeding; R16.1 Splenomegaly, not elsewhere classified; K74.3 Primary biliary cirrhosis; E66.9 Obesity, unspecified; F17.210 Nicotine dependence, cigarettes, uncomplicated; I25.2 Old myocardial infarction; Z68.43 Body mass index [BMI] 50.0-59.9, adult; Z79.899 Other long term (current) drug therapy; Z90.49 Acquired absence of other specified parts of digestive tract
CPT/HCPCS: 71275; 74174; 75574; 80048; 80053; 80061; 82550; 82948; 83036; 83690; 83735; 84443; 84484; 85025; 93005; 93306; 96372; 99285; G0378; J1815; Q9967

== ENCOUNTER → 2017-07-27 | Outpatient (CLI) | payer OTHER ==
[~2017-07-27] MED LIST changes: +ATOR20TA15 PO; +ECASA81 PO; +PANT40TA3 PO; -QUES4POW2 PO; -TRAM50 PO
[2017-07-27 13:11] LABS: AUTOMATED NEUTROPHIL # 3.1 TH/MM3 (1.8-7.7); BASOPHIL % 0.6 % (0.0-2.0); EOSINOPHIL # 0.3 TH/MM3 (0-0.4); EOSINOPHIL % 3.8 % (0.0-4.0); HEMATOCRIT 37.1 % (35.0-46.0); HEMOGLOBIN 12.4 GM/DL (11.6-15.3); LYMPH % 41.2 % (9.0-44.0); LYMPHOCYTE # 2.8 TH/MM3 (1.0-4.8); MEAN CELL VOLUME 89.8 FL (80.0-100.0); MEAN CORPUSCULAR HGB CONC 33.4 % (32.0-36.0); MEAN PLATELET VOLUME 10.3 FL (7.0-11.0); MONO % 7.1 % (0.0-8.0); MONOCYTE # 0.5 TH/MM3 (0-0.9); NEUT % 47.3 % (16.0-70.0); RED BLOOD COUNT 4.13 MIL/MM3 (4.00-5.30); RED CELL DISTRIBUTION WIDTH 16.9 % (11.6-17.2); WHITE BLOOD COUNT 6.7 TH/MM3 (4.0-11.0)
[2017-07-27 13:17] LABS: PLATELET COUNT 95 TH/MM3 (150-450)
[2017-07-27 19:17] LABS: ALBUMIN 3.4 GM/DL (3.4-5.0); AST (GOT) 94 U/L (15-37); BICARBONATE 27.6 MEQ/L (21.0-32.0); BLOOD UREA NITROGEN 10 MG/DL (7-18); CALCIUM 8.9 MG/DL (8.5-10.1); CHLORIDE 105 MEQ/L (98-107); CREATININE 0.83 MG/DL (0.50-1.00); DIRECT BILIRUBIN ADULT 0.2 MG/DL (0.0-0.2); GLOMERULAR FILTRATION RATE 71 ML/MIN (>89); GLUCOSE,FASTING 129 MG/DL (74-99); SODIUM (NA) 140 MEQ/L (136-145)
[2017-07-27 19:18] LABS: ALT (GPT) 61 U/L (10-53); CHOLESTEROL 206 MG/DL (120-200); TRIGLYCERIDES 178 MG/DL (42-150)
[2017-07-27 19:20] LABS: ALKALINE PHOSPHATASE 175 U/L (45-117); CHOLESTEROL/ HDL RATIO 5.13 RATIO; HDL CHOLESTEROL 40.1 MG/DL (40.0-60.0); LDL CHOLESTEROL 130 MG/DL (0-99); TOTAL BILIRUBIN ADULT 0.9 MG/DL (0.2-1.0); TOTAL PROTEIN 8.2 GM/DL (6.4-8.2)
[2017-07-27 22:13] LABS: HEMOGLOBIN A1C 7.6 % (4.3-6.0)
== END ==
LOC: PLAB 12:11
PROVIDERS: ATTEND Internal Medicine Gastroenterology
DX: D69.6 Thrombocytopenia, unspecified (principal); E11.9 Type 2 diabetes mellitus without complications; E55.9 Vitamin D deficiency, unspecified; E78.5 Hyperlipidemia, unspecified; K74.60 Unspecified cirrhosis of liver; R16.0 Hepatomegaly, not elsewhere classified; K76.0 Fatty (change of) liver, not elsewhere classified
CPT/HCPCS: 80053; 80061; 82043; 82105; 82248; 82306; 83036; 85025

== ENCOUNTER → 2017-08-30 | Outpatient (CLI) | payer OTHER ==
[2017-08-30 14:40] LABS: GLUCOSE,FASTING 187 MG/DL (74-99)
[2017-08-30 16:55] LABS: HEMOGLOBIN A1C 8.3 % (4.3-6.0)
== END ==
LOC: PLAB 10:55
PROVIDERS: ATTEND Family Medicine
DX: E11.9 Type 2 diabetes mellitus without complications (principal)
CPT/HCPCS: 36415; 82947; 83036

== ENCOUNTER → 2017-09-26 | Outpatient (CLI) | payer OTHER | LOC: PLAB 11:00 | PROVIDERS: ATTEND Family Medicine | DX: E11.9 Type 2 diabetes mellitus without complications (principal) | CPT/HCPCS: 36415; 82947 ==